=== PATIENT | female | born 1955 | race Caucasian/White ===

== ENCOUNTER 2017-01-15 14:14 | Emergency (ER) | payer BC ==
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
[2017-01-15] MEDS ORDERED: TORAdol 30 mg Injection IM ONE (16:08)
[2017-01-15 16:10] VITALS: O2SAT 93
[2017-01-15] MEDS ORDERED: TORAdol 30 mg Injection ONE ×2 (16:13→16:17)
[2017-01-15 16:56] VITALS: BP 130/68; PULSE 84
--- NOTE | 2017-01-15 21:22 | XRAY ---
Indication: Pain following fall. Comparison: None 3 views of the left elbow demonstrates tiny olecranon process bone spur. No other bony, articular, or soft tissue abnormalities.
== END 2017-01-15 16:56 | disposition home or self-care (01) ==
LOC: ED 14:14
DX: S50.02XA Contusion of left elbow, initial encounter (principal); W01.0XXA Fall on same level from slipping, tripping and stumbling without subsequent striking against object, initial encounter; E11.9 Type 2 diabetes mellitus without complications; Z79.899 Other long term (current) drug therapy; J44.9 Chronic obstructive pulmonary disease, unspecified
CPT/HCPCS: 73080; 96372; 99283; 99284; J1885

== ENCOUNTER 2017-03-06 22:08 | Emergency (ER) | payer BC ==
[2017-03-06 22:19] VITALS: O2SAT 94
[2017-03-06] MEDS ORDERED: Zofran 4 MG/2 ML VIAL IV ONE (22:28)
[2017-03-06] MEDS ORDERED: BABY ASPIRIN 81 MG CHEW PO ONE (22:28)
[2017-03-06] MEDS ORDERED: Nitrostat 0.4 MG (ED) SL ONE ×2 (22:28→22:29)
[2017-03-06] MEDS ORDERED: Sodium Chloride 0.9% 1000 ML 1,000 ML ONE (22:29)
[2017-03-06] MEDS ORDERED: BABY ASPIRIN 81 MG CHEW ONE (22:29)
[2017-03-06] MEDS ORDERED: Zofran 4 MG/2 ML VIAL ONE (22:31)
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
[2017-03-06 22:36] LABS: BASOPHIL % 0.3 % (0.0-0.4); Eosinophil % 1.8 % (0.00-5.0); Granulocytes % 57.3 % (36.0-66.0); Lymphocytes % 34.8 % (24.0-44.0); Mean Cell Volume 90.2 fl (78-100); Mean Corpuscular Hemoglobin 28.2 pg (26-32); Mean Platelet Volume 9.5 fl (6-9.5); Monocytes % 5.8 % (0.0-12.0); Platelet Count 347 K/mm3 (150-450); Red Blood Count 4.58 M/mm3 (4.1-5.4); Red Cell Distribution Width 13.8 % (11.5-14.0)
[2017-03-06 22:39] LABS: INR 1.05 (0.8-3.0); PROTIME 11.7 SECONDS (9.95-12.35)
[2017-03-06] MEDS ORDERED: Ntg 0.2MG/Ml in D5W GLASS*** 250 ML IV PRN (22:41)
[2017-03-06 22:42] LABS: PTT 32.5 SECONDS (25.3-37.0)
[2017-03-06] MEDS ORDERED: Ntg 0.2MG/Ml in D5W GLASS*** 250 ML IV ONE (22:45)
[2017-03-06] MEDS ORDERED: Sodium Chloride 0.9% 1000 ML 1,000 ML IV SCH (22:45)
[2017-03-06 22:53] VITALS: BP 128/61; PULSE 105
[2017-03-06 22:54] LABS: ALBUMIN 3.6 g/dL (3.4-5.0); ALKALINE PHOSPHATASE 145 U/L (46-116); ANION GAP 14.7 MEQ/L (5-15); BLOOD UREA NITROGEN 23 mg/dL (9-20); CHLORIDE 105 mEq/L (98-107); Carbon Dioxide 26.9 mEq/L (21-32); Glucose 309 MG/DL (70-110); Potassium 3.8 mEq/L (3.5-5.1); SGOT/AST 17 U/L (15-37); SGPT/ALT 28 U/L (12-78); SODIUM 143 mEq/L (136-145); Total Protein 7.4 gm/dL (6.4-8.2)
[2017-03-06] MEDS ORDERED: Heparin 5000 UNITS/0.5 ML (HIGH RISK MED) ONE (22:54)
[2017-03-06] MEDS ORDERED: Heparin 25,000 units/D5W 250ML PREMIX 25,000 UNITS/250 ML BAG IV ONE (22:54)
[2017-03-06] MEDS ORDERED: LOPRESSOR 5 MG/5 ML INJECTION IV ONE ×2 (22:55→22:57)
[2017-03-06] MEDS ORDERED: Heparin 5000 UNITS/0.5 ML (HIGH RISK MED) IV ONE (22:56)
[2017-03-06] MEDS ORDERED: Heparin 25,000 units/D5W 250ML PREMIX 25,000 UNITS/250 ML BAG IV SCH (23:00)
--- NOTE | 2017-03-07 08:48 | XRAY ---
Indication: Chest pain. Comparison: December 26, 2014. Portable chest less inflated today again without focal infiltrate, consolidation, or large effusion. Heart is not enlarged for AP portable technique. Stable right base and hilar/mediastinal calcified granulomas. Bony thorax intact again with mild degenerative changes and right shoulder surgery. Impression: Stable nonacute chest with chronic features.
== END 2017-03-06 23:30 | disposition short-term general hospital (02) ==
LOC: ED 22:08
DX: I24.9 Acute ischemic heart disease, unspecified (principal); R07.89 Other chest pain; R11.0 Nausea; E11.9 Type 2 diabetes mellitus without complications; Z79.84 Long term (current) use of oral hypoglycemic drugs; Z79.899 Other long term (current) drug therapy
CPT/HCPCS: 36000; 36415; 71010; 80053; 83880; 84484; 85025; 85610; 85730; 93005; 93041; 96360; 96361; 96365; 96374; 96375; 99285; J1644; J2405; A9270-GY

== ENCOUNTER 2017-06-21 12:54 | Observation (INO) | payer BC ==
[2017-06-21] MEDS ORDERED: Sodium Chloride 0.9% 500 ML 500 ML IV ONE ×2 (13:49→14:08)
--- NOTE | 2017-06-21 14:07 | XRAY ---
Indication: Dizziness. Comparison: March 06, 2017. Portable chest remains clear. Heart is not enlarged for AP portable technique. New left-sided AICD without complications. Stable mediastinal/hilar calcified nodes. Bony thorax intact. Impression: Nonacute chest with chronic features.
[2017-06-21] MEDS ORDERED: Zofran 4 MG/2 ML VIAL ONE (14:10)
[2017-06-21 14:16] LABS: Hematocrit 42.8 % (35-47); Hemoglobin 13.5 gm/dl (12.0-16.0); Mean Cell Volume 87.2 fl (78-100); Mean Corpuscular Hemoglobin 27.5 pg (26-32); Mean Corpuscular Hgb Concent. 31.5 g/dl (32-36); Mean Platelet Volume 9.7 fl (6-9.5); Platelet Count 225 K/mm3 (150-450); Red Blood Count 4.91 M/mm3 (4.1-5.4); Red Cell Distribution Width 14.2 % (11.5-14.0); White Blood Count 10.1 K/mm3 (4.0-10.5)
[2017-06-21] MEDS: Zofran 4 MG/2 ML VIAL IV ONE (14:17)
[2017-06-21 14:40] LABS: ALBUMIN 4.3 g/dL (3.5-5.0); ALKALINE PHOSPHATASE 143 U/L (38-126); ANION GAP 16.6 MEQ/L (5-15); BLOOD UREA NITROGEN 16 mg/dL (7-17); CHLORIDE 103 mmol/L (98-107); Calcium 9.5 mg/dL (8.4-10.2); Carbon Dioxide 28 mmol/L (22-30); Creatinine 1 0.72 mg/dL (0.52-1.04); Glucose 289 mg/dL (74-106); Potassium 4.1 mmol/L (3.5-5.1); SGOT/AST 19 U/L (14-36); SGPT/ALT 17 U/L (0-35); SODIUM 144 mmol/L (137-145); Total Protein 7.3 g/dL (6.3-8.2)
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
[2017-06-21 14:48] LABS: NT PRO BNP 1870 pg/mL (0-900)
[2017-06-21 18:20] LABS: Appearance CLEAR (CLEAR); Bilirubin NEGATIVE (NEGATIVE); Blood NEGATIVE Ery/ul (0-5); Glucose 250 mg/dL (NEGATIVE); Ketones NEGATIVE (NEGATIVE); Leukocyte Esterase NEGATIVE (NEGATIVE); Nitrite NEGATIVE (NEGATIVE); Protein,Urine Dip NEGATIVE (Negative); Specific Gravity 1.025 (1.005-1.025); Urobilinogen NORMAL mg/dL (0-1)
[2017-06-21 18:21] LABS: Bacteria FEW /HPF (NEGATIVE); Epithelial Cells MODERATE /HPF (FEW); Hyaline Casts 0-2 /LPF (0-2); Mucus MODERATE /HPF (NEGATIVE)
[2017-06-21] MEDS ORDERED: Zofran 4 MG/2 ML VIAL IV PRN (20:23)
[2017-06-21] MEDS ORDERED: Sodium Chloride 0.9% 1000 ML 1,000 ML IV SCH (20:23)
[2017-06-21] MEDS ORDERED: TYLENOL 325 MG PO PRN (20:23)
[2017-06-21] MEDS ORDERED: TYLENOL EXTRA STRENGTH 500 MG PO PRN (21:25)
[2017-06-21] MEDS ORDERED: ULTRAM 50 MG PO PRN (21:29)
[2017-06-21] MEDS ORDERED: Imdur 30 MG ONE (21:38)
[2017-06-21] MEDS: NEURONTIN 300 MG PO SCH (22:17)
[2017-06-21] MEDS: Glucophage 500 MG PO SCH (22:18)
[2017-06-22 05:44] LABS: BASOPHIL % 0.4 % (0.0-0.4); Basophil (Absolute #) 0.03 (0-0.4); Eosinophil % 2.3 % (0.00-5.0); Eosinophil (Absolute #) 0.19 (0-0.5); Granulocyte Absolute (ANC) 5.01 (1.4-6.9); Granulocytes % 59.7 % (36.0-66.0); Hematocrit 40.1 % (35-47); Hemoglobin 12.3 gm/dl (12.0-16.0); Lymphocyte (Absolute #) 2.71 (1.0-4.6); Lymphocytes % 32.3 % (24.0-44.0); Mean Cell Volume 88.7 fl (78-100); Mean Corpuscular Hemoglobin 27.2 pg (26-32); Mean Corpuscular Hgb Concent. 30.7 g/dl (32-36); Mean Platelet Volume 9.5 fl (6-9.5); Monocyte (Absolute #) 0.44 (0.0-1.3); Monocytes % 5.3 % (0.0-12.0); Platelet Count 206 K/mm3 (150-450); Red Blood Count 4.52 M/mm3 (4.1-5.4); Red Cell Distribution Width 14.2 % (11.5-14.0); White Blood Count 8.4 K/mm3 (4.0-10.5)
[2017-06-22 06:08] LABS: ALBUMIN 3.9 g/dL (3.5-5.0); ALKALINE PHOSPHATASE 113 U/L (38-126); ANION GAP 12.5 MEQ/L (5-15); BLOOD UREA NITROGEN 17 mg/dL (7-17); CHLORIDE 101 mmol/L (98-107); Calcium 9.4 mg/dL (8.4-10.2); Carbon Dioxide 31 mmol/L (22-30); Glucose 177 mg/dL (74-106); Potassium 3.8 mmol/L (3.5-5.1); SGOT/AST 12 U/L (14-36); SGPT/ALT 15 U/L (0-35); SODIUM 141 mmol/L (137-145); Total Protein 6.7 g/dL (6.3-8.2)
[2017-06-22] MEDS ORDERED: Sodium Chloride 0.9% 10 ML FLUSH Syringe IV PRN (06:31)
[2017-06-22] MEDS: Glucophage 500 MG PO SCH ×2 (07:29→17:35)
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
[2017-06-22] MEDS ORDERED: Imdur 30 MG PO SCH (10:00)
[2017-06-22] MEDS ORDERED: Zestril 5 MG PO SCH (10:00)
[2017-06-22] MEDS ORDERED: LASIX 20 MG PO SCH (10:00)
[2017-06-22] MEDS: Cymbalta 30 MG Capsule PO SCH (11:18)
[2017-06-22] MEDS: NEURONTIN 300 MG PO SCH ×2 (11:18→21:35)
[2017-06-22] MEDS: Glucotrol Xl 5 MG PO SCH (11:18)
[2017-06-22] MEDS: LIPITOR 40MG PO SCH (11:19)
[2017-06-22] MEDS: Sodium Chloride 0.9% 10 ML FLUSH Syringe IV SCH ×2 (17:35→21:37)
[2017-06-22] MEDS ORDERED: Coreg 3.125 MG PO SCH (22:00)
[2017-06-23] MEDS: Sodium Chloride 0.9% 10 ML FLUSH Syringe IV SCH (06:09)
[2017-06-23 06:41] VITALS: BP 156/81; O2SAT 94
[2017-06-23 06:59] VITALS: PULSE 70
[2017-06-23] MEDS: Glucophage 500 MG PO SCH (08:02)
[2017-06-23] MEDS: LIPITOR 40MG PO SCH (09:03)
[2017-06-23] MEDS: Glucotrol Xl 5 MG PO SCH (09:03)
[2017-06-23] MEDS: Cymbalta 30 MG Capsule PO SCH (09:03)
[2017-06-23] MEDS: NEURONTIN 300 MG PO SCH (09:03)
--- NOTE | 2017-06-23 09:58 | PCM.DCORD ---
- Discharge Discharge Date: 06/23/17 Disposition: Home, Self-Care Condition: Good Prescriptions: New Fluticasone/Salmeterol [Advair 250-50 Diskus] 1 each IH BID #1 disk.w.dev Carvedilol 3.125 mg [Coreg 3.125 MG] 3.125 mg PO HS tablet Glipizide Xl 5 mg [Glucotrol Xl 5 MG] 5 mg PO DAILY@0900 #30 tab Albuterol Sulfate [Proair Hfa] 2 inh IN Q4H PRN #1 [id number] PRN Reason: Shortness Of Breath Continue Metformin HCl [Metformin HCl ER] 500 mg PO BID Gabapentin [Neurontin] 600 mg PO BID Acetaminophen [Acetaminophen Extra Strength] 1,000 mg PO TID Duloxetine HCl 30 mg [Cymbalta 30 MG Capsule] 30 mg PO DAILY Atorvastatin Calcium [Lipitor] 40 mg PO DAILY Tramadol HCl 50 mg [Ultram 50 mg] 50 mg PO Q6HPRN PRN PRN Reason: Pain Discontinued Insulin Degludec [Tresiba Flextouch U-100] 16 unit SQ HS Glyburide 5 mg [Micronase 5 MG] 5 mg PO BID Furosemide [Furosemide] 20 mg PO DAILY Isosorbide Mononitrate 30 mg [Imdur 30 MG] 30 mg PO DAILY Carvedilol [Carvedilol] 3.125 mg PO BID Sacubitril/Valsartan [Entresto 49 mg-51 mg Tablet] 1 each PO BID Additional Instructions: Follow up with Dr. Park. Follow up with: AGNES IBARRA [Primary Care Provider] - 07/01/17 10:30 am
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
== END 2017-06-23 11:08 | disposition home or self-care (01) ==
LOC: ED 12:54 → MED SURG 20:05
PROVIDERS: ADMIT Internal Medicine; ATTEND Internal Medicine
DX: R55 Syncope and collapse (principal); E11.9 Type 2 diabetes mellitus without complications; I42.9 Cardiomyopathy, unspecified; Z79.899 Other long term (current) drug therapy
CPT/HCPCS: 36000; 36415; 71045; 80053; 81000; 82962; 83880; 84484; 85025; 85027; 93005; 93268; 94760; 96360; 96361; 96374; 99285; G0378; J2405; Q3014; A9270-GY

== ENCOUNTER 2017-10-04 20:01 | Emergency (ER) | payer BC ==
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
[2017-10-04] MEDS ORDERED: MOTRIN 400 MG PO ONE (21:26)
[2017-10-04] MEDS ORDERED: MOTRIN 400 MG ONE (21:51)
[2017-10-04 22:04] VITALS: BP 140/63; PULSE 94; O2SAT 95
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
== END 2017-10-04 22:01 | disposition home or self-care (01) ==
LOC: ED 20:01
DX: S80.02XA Contusion of left knee, initial encounter (principal); M25.562 Pain in left knee; V09.9XXA Pedestrian injured in unspecified transport accident, initial encounter; Y93.01 Activity, walking, marching and hiking; Y92.009 Unspecified place in unspecified non-institutional (private) residence as the place of occurrence of the external cause; Z79.899 Other long term (current) drug therapy
CPT/HCPCS: 73562; 73590; 99284; A9270-GY

== ENCOUNTER 2018-01-23 22:53 | Emergency (ER) | payer BC ==
[2018-01-23] MEDS ORDERED: Sodium Chloride 0.9% 1000 ML 1,000 ML ONE (23:02)
[2018-01-23] MEDS ORDERED: Sodium Chloride 0.9% 1000 ML 1,000 ML IV STA (23:11)
[2018-01-23] MEDS ORDERED: Nitrostat 0.4 MG (ED) SL ONE (23:11)
[2018-01-23] MEDS ORDERED: MORPHINE SULFATE 2 MG INJ IV ONE (23:11)
[2018-01-23] MEDS ORDERED: BABY ASPIRIN 81 MG CHEW PO ONE (23:11)
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
[2018-01-23] MEDS ORDERED: MORPHINE SULFATE 2 MG INJ ONE (23:14)
[2018-01-23] MEDS ORDERED: Zofran 4 MG/2 ML VIAL ONE (23:14)
[2018-01-23] MEDS ORDERED: Zofran 4 MG/2 ML VIAL IV ONE (23:14)
[2018-01-23 23:20] LABS: BASOPHIL % 0.3 % (0.0-0.4); Basophil (Absolute #) 0.04 (0-0.4); Eosinophil % 1.3 % (0.00-5.0); Eosinophil (Absolute #) 0.17 (0-0.5); Granulocyte Absolute (ANC) 7.83 (1.4-6.9); Granulocytes % 61.2 % (36.0-66.0); Hematocrit 47.1 % (35-47); Hemoglobin 15.5 gm/dl (12.0-16.0); Lymphocyte (Absolute #) 4.06 (1.0-4.6); Lymphocytes % 31.7 % (24.0-44.0); Mean Cell Volume 86.6 fl (78-100); Mean Corpuscular Hgb Concent. 32.9 g/dl (32-36); Mean Platelet Volume 9.5 fl (6-9.5); Monocyte (Absolute #) 0.71 (0.0-1.3); Monocytes % 5.5 % (0.0-12.0); Platelet Count 234 K/mm3 (150-450); Red Blood Count 5.44 M/mm3 (4.1-5.4); Red Cell Distribution Width 13.6 % (11.5-14.0); White Blood Count 12.8 K/mm3 (4.0-10.5)
[2018-01-23 23:24] LABS: Mean Corpuscular Hemoglobin 28.4 pg (26-32)
[2018-01-23 23:43] LABS: ALBUMIN 4.6 g/dL (3.5-5.0); ALKALINE PHOSPHATASE 124 U/L (38-126); ANION GAP 15.7 MEQ/L (5-15); BLOOD UREA NITROGEN 26 mg/dL (7-17); CHLORIDE 97 mmol/L (98-107); CK-Creatinine Phosphokinase 29 U/L (30-135); Calcium 9.8 mg/dL (8.4-10.2); Carbon Dioxide 31 mmol/L (22-30); Creatinine 1 0.69 mg/dL (0.52-1.04); Glucose 231 mg/dL (74-106); NT PRO BNP 1860 pg/mL (0-900); Potassium 4.9 mmol/L (3.5-5.1); SGOT/AST 38 U/L (14-36); SGPT/ALT 63 U/L (0-35); SODIUM 138 mmol/L (137-145); Total Protein 7.4 g/dL (6.3-8.2)
[2018-01-23 23:47] LABS: Lactic Acid 2.1 (0.4-2.0)
[2018-01-24] MEDS ORDERED: MORPHINE SULFATE 2 MG INJ IV ONE ×2 (00:01→01:06)
[2018-01-24] MEDS ORDERED: MORPHINE SULFATE 2 MG INJ ONE ×2 (00:03→01:10)
[2018-01-24 00:21] VITALS: O2SAT 96
[2018-01-24 01:20] VITALS: BP 139/83; PULSE 79
--- NOTE | 2018-01-24 09:11 | XRAY ---
Exam: AP portable chest film from 01/23/2018. Comparison: AP portable chest film from 06/21/2017. Indication: Chest pain. Findings: The film was obtained in a mildly lordotic projection. Inflation of the lungs is average. The transverse heart size appears within normal limits. Left-sided cardiac pacemaker/AICD is seen with [address], one lead tip in the projection of the right atrium, another lead tip in the projection of the right ventricle, and a third lead in the projection of the coronary sinus. This is unchanged. Calcifications are seen within each hilum, right greater than left, as well as to the right of midline in the subcarinal region consistent with old healed granulomatous disease. This is unchanged. No air space infiltrates, vascular congestion, pneumothorax, or pleural fluid is seen. There may be a calcified granuloma within the right posterior lung sulcus. This is confirmed on a CT of the chest from 02/29/2016. No acute osseous process is seen. There appears to be mild degenerative disc disease and degenerative joint disease at C5-C6. Slight convexity of the mid thoracic spine toward the right is seen. Impression: 1. No acute cardiopulmonary disease is seen, no change from 06/21/2017. 2. I again see evidence of old healed granulomatous disease, as well as a left-sided cardiac pacemaker/AICD.
== END 2018-01-24 02:04 | disposition short-term general hospital (02) ==
LOC: ED 22:53
DX: R07.9 Chest pain, unspecified (principal); Z79.899 Other long term (current) drug therapy; Z95.0 Presence of cardiac pacemaker; R06.02 Shortness of breath; R61 Generalized hyperhidrosis; E11.9 Type 2 diabetes mellitus without complications; Z79.4 Long term (current) use of insulin
CPT/HCPCS: 36000; 36415; 71045; 80053; 82550; 83605; 83735; 83880; 84484; 85025; 93005; 93041; 96360; 96374; 96375; 96376; 99285; J2270; J2405; A9270-GY

== ENCOUNTER 2018-02-20 11:09 | Emergency (ER) | payer BC ==
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
[2018-02-20 12:02] LABS: BASOPHIL % 0.4 % (0.0-0.4); Basophil (Absolute #) 0.03 (0-0.4); Eosinophil % 1.1 % (0.00-5.0); Eosinophil (Absolute #) 0.09 (0-0.5); Granulocytes % 65.5 % (36.0-66.0); Hematocrit 47.7 % (35-47); Hemoglobin 15.5 gm/dl (12.0-16.0); Lymphocytes % 28.1 % (24.0-44.0); Mean Corpuscular Hgb Concent. 32.5 g/dl (32-36); Mean Platelet Volume 9.4 fl (6-9.5); Monocyte (Absolute #) 0.42 (0.0-1.3); Monocytes % 4.9 % (0.0-12.0); Platelet Count 242 K/mm3 (150-450); Red Blood Count 5.48 M/mm3 (4.1-5.4); Red Cell Distribution Width 13.9 % (11.5-14.0); White Blood Count 8.5 K/mm3 (4.0-10.5)
[2018-02-20 12:08] LABS: Mean Corpuscular Hemoglobin 28.2 pg (26-32)
--- NOTE | 2018-02-20 12:11 | XRAY ---
Indication: Hemoptysis and back pain. Comparison: January 23, 2018. PA/lateral chest unchanged again hyperinflated and clear with incidental scattered calcified granulomas. Heart is not enlarged again with left sided AICD. No new/acute findings.
[2018-02-20 12:17] LABS: ALBUMIN 4.8 g/dL (3.5-5.0); ALKALINE PHOSPHATASE 164 U/L (38-126); ANION GAP 16.7 MEQ/L (5-15); BLOOD UREA NITROGEN 25 mg/dL (7-17); CHLORIDE 100 mmol/L (98-107); Calcium 9.9 mg/dL (8.4-10.2); Carbon Dioxide 26 mmol/L (22-30); Creatinine 1 0.64 mg/dL (0.52-1.04); Glucose 297 mg/dL (74-106); Potassium 4.3 mmol/L (3.5-5.1); SGOT/AST 31 U/L (14-36); SGPT/ALT 52 U/L (0-35); SODIUM 138 mmol/L (137-145)
[2018-02-20 12:45] LABS: INR 0.9 (0.8-3.0)
[2018-02-20 12:47] LABS: PTT 31.2 SECONDS (25.3-37.0)
[2018-02-20] MEDS ORDERED: DUONEB 0.5-3 MG/3 ml Neb IH ONE ×2 (12:56→13:05)
[2018-02-20 13:34] VITALS: BP 111/74; PULSE 78; O2SAT 97
== END 2018-02-20 13:35 | disposition home or self-care (01) ==
LOC: ED 11:09
DX: R04.2 Hemoptysis (principal); J44.9 Chronic obstructive pulmonary disease, unspecified; M54.6 Pain in thoracic spine; F17.200 Nicotine dependence, unspecified, uncomplicated; Z79.899 Other long term (current) drug therapy; E11.9 Type 2 diabetes mellitus without complications; Z79.4 Long term (current) use of insulin
CPT/HCPCS: 36000; 36415; 71046; 80053; 85025; 85379; 85610; 85730; 93005; 94150; 94640; 99284; A9270

== ENCOUNTER 2018-04-05 13:38 | Emergency (ER) | payer BC ==
[2018-04-05] MEDS ORDERED: Sodium Chloride 0.9% 1000 ML 1,000 ML IV SCH (14:00)
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
[2018-04-05 14:08] LABS: Lactic Acid 1.9 (0.4-2.0)
--- NOTE | 2018-04-05 14:08 | XRAY ---
Indication: Short of breath. Comparison: February 20, 2018. Portable chest unchanged again hyperinflated and clear with incidental scattered calcified granulomas and left-sided AICD. Heart is not enlarged. No new/acute findings.
[2018-04-05 14:10] LABS: BASOPHIL % 0.4 % (0.0-0.4); Basophil (Absolute #) 0.04 (0-0.4); Eosinophil % 1.5 % (0.00-5.0); Eosinophil (Absolute #) 0.14 (0-0.5); Granulocyte Absolute (ANC) 5.86 (1.4-6.9); Granulocytes % 63.8 % (36.0-66.0); Hematocrit 48.6 % (35-47); Hemoglobin 15.9 gm/dl (12.0-16.0); Lymphocytes % 29.3 % (24.0-44.0); Mean Cell Volume 87.6 fl (78-100); Mean Corpuscular Hemoglobin 28.6 pg (26-32); Mean Corpuscular Hgb Concent. 32.7 g/dl (32-36); Mean Platelet Volume 9.5 fl (6-9.5); Monocyte (Absolute #) 0.46 (0.0-1.3); Platelet Count 229 K/mm3 (150-450); Red Blood Count 5.55 M/mm3 (4.1-5.4); White Blood Count 9.2 K/mm3 (4.0-10.5)
[2018-04-05] MEDS ORDERED: TYLENOL EXTRA STRENGTH 500 MG PO STA (14:15)
[2018-04-05 14:42] LABS: ALBUMIN 4.6 g/dL (3.5-5.0); ALKALINE PHOSPHATASE 129 U/L (38-126); ANION GAP 15.8 MEQ/L (5-15); BLOOD UREA NITROGEN 22 mg/dL (7-17); CHLORIDE 101 mmol/L (98-107); Calcium 9.7 mg/dL (8.4-10.2); Carbon Dioxide 26 mmol/L (22-30); Creatinine 1 0.64 mg/dL (0.52-1.04); Glucose 257 mg/dL (74-106); NT PRO BNP 1000 pg/mL (0-900); Potassium 4.4 mmol/L (3.5-5.1); SGOT/AST 18 U/L (14-36); SGPT/ALT 20 U/L (0-35); SODIUM 138 mmol/L (137-145)
[2018-04-05] MEDS ORDERED: Sodium Chloride 0.9% 1000 ML 1,000 ML ONE ×2 (14:50→15:49)
[2018-04-05] MEDS ORDERED: TYLENOL EXTRA STRENGTH 500 MG ONE (14:50)
[2018-04-05 17:38] VITALS: BP 107/60
[2018-04-05 17:47] VITALS: O2SAT 94
[2018-04-05 17:49] VITALS: PULSE 89
== END 2018-04-05 17:56 | disposition home or self-care (01) ==
LOC: ED 13:38
DX: R00.2 Palpitations (principal); J44.9 Chronic obstructive pulmonary disease, unspecified; R42 Dizziness and giddiness; R07.9 Chest pain, unspecified; R11.0 Nausea; I10 Essential (primary) hypertension; R51 Headache; E11.9 Type 2 diabetes mellitus without complications; Z79.4 Long term (current) use of insulin; Z79.899 Other long term (current) drug therapy; I25.2 Old myocardial infarction
CPT/HCPCS: 36000; 36415; 71045; 80053; 83605; 83735; 83880; 84484; 85025; 85379; 85610; 93005; 93041; 96360; 96361; 96374; 99284; A9270-GY

== ENCOUNTER 2018-11-12 12:49 | Emergency (ER) | payer BC ==
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
[2018-11-12 15:17] VITALS: BP 133/75; PULSE 72
[2018-11-12 15:46] VITALS: O2SAT 95
--- NOTE | 2018-11-12 21:01 | XRAY ---
Indication: Left jaw pain following tooth extraction 2 weeks ago. Abscess. Multiple contiguous axial images obtained through the facial bones without contrast as ordered. Sagittal and coronal reformatted images obtained. Comparison: None A few bilateral dental amalgams produces beam artifact. There has been right upper premolar and left lower molar tooth extraction with minimal soft tissue swelling and air in the sockets. No acute fracture, suspicious bony lesions, or osseous destructive process. Orbits including roof, mejia, and floors intact. Right maxillary sinus dens is mild mucosal thickening. Remaining paranasal sinuses and nasal passages are clear. Minimal nasal septal deviation to the right. Visualized noncontrasted soft tissues including base of the brain unremarkable. Impression: 1. Bilateral teeth extraction with residual soft tissue swelling and air. 2. Right maxillary sinus disease. 3. Remaining CT facial bones without contrast exam is negative. Comment: Preliminary interpretation was made by [facility]. No discrepancy. CTDI 59.47
== END 2018-11-12 15:50 | disposition home or self-care (01) ==
LOC: ED 12:49
DX: K08.89 Other specified disorders of teeth and supporting structures (principal)
CPT/HCPCS: 70486; 99283

== ENCOUNTER 2019-01-03 14:23 | Emergency (ER) | payer BC ==
[2019-01-03] MEDS ORDERED: NEOSYNEPHRINE 0.5% NASAL SPRAY/DROPS NS ONE (14:46)
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
[2019-01-03] MEDS ORDERED: NEOSYNEPHRINE 0.5% NASAL SPRAY/DROPS ONE (14:47)
[2019-01-03] MEDS ORDERED: XYLOCAINE 2% Uro-Jet ONE (14:50)
[2019-01-03] MEDS ORDERED: XYLOCAINE 2% Uro-Jet TOP ONE (14:56)
[2019-01-03 15:21] VITALS: BP 133/75; PULSE 88; O2SAT 98
== END 2019-01-03 15:39 | disposition home or self-care (01) ==
LOC: ED 14:23
DX: R04.0 Epistaxis (principal)
CPT/HCPCS: 30901; 99283; A9270-GY

== ENCOUNTER 2019-01-03 16:03 | Emergency (ER) | payer BC ==
[2011-12-06 20:14] VITALS: BP 115/68
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
== END 2019-01-03 16:31 | disposition left against medical advice (07) ==
LOC: ED 16:03
DX: R04.0 Epistaxis (principal); I50.9 Heart failure, unspecified; J44.9 Chronic obstructive pulmonary disease, unspecified; E11.9 Type 2 diabetes mellitus without complications; Z79.899 Other long term (current) drug therapy; F32.9 Major depressive disorder, single episode, unspecified; M19.90 Unspecified osteoarthritis, unspecified site
CPT/HCPCS: 99283

== ENCOUNTER 2019-03-16 08:52 | Emergency (ER) | payer BC ==
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
[2019-03-16] MEDS ORDERED: Sodium Chloride 0.9% 500 ML 500 ML IV ONE ×2 (09:53→09:59)
[2019-03-16 10:13] LABS: Absolute Neutrophil Ct (ANC) 3.96 (1.4-6.9); BASOPHIL % 0.6 % (0.0-0.4); Basophil (Absolute #) 0.04 (0-0.4); Eosinophil % 1.9 % (0.00-5.0); Eosinophil (Absolute #) 0.13 (0-0.5); Hematocrit 45.2 % (35-47); Lymphocyte (Absolute #) 2.41 (1.0-4.6); Lymphocytes % 34.7 % (24.0-44.0); Mean Cell Volume 87.6 fl (78-100); Mean Corpuscular Hemoglobin 29.1 pg (26-32); Mean Corpuscular Hgb Concent. 33.2 g/dl (32-36); Mean Platelet Volume 10.1 fl (6-9.5); Monocytes % 5.8 % (0.0-12.0); Platelet Count 226 K/mm3 (150-450); Red Blood Count 5.16 M/mm3 (4.1-5.4); White Blood Count 6.9 K/mm3 (4.0-10.5)
[2019-03-16 10:17] LABS: INR 0.98 (0.8-3.0); PROTIME 11.1 SECONDS (9.95-12.35)
[2019-03-16 10:29] LABS: Appearance SLIGHTLY CLOUDY (CLEAR); Bacteria FEW /HPF (NEGATIVE); Bilirubin NEGATIVE (NEGATIVE); Blood NEGATIVE Ery/ul (0-5); Epithelial Cells FEW /HPF (FEW); Glucose >=500 mg/dL (NEGATIVE); Ketones TRACE (NEGATIVE); Leukocyte Esterase NEGATIVE (NEGATIVE); Mucus SLIGHT /HPF (NEGATIVE); Nitrite NEGATIVE (NEGATIVE); Protein,Urine Dip NEGATIVE (Negative); RBC 0-2 /HPF (0-2); Specific Gravity 1.031 (1.005-1.025); Urobilinogen NEGATIVE mg/dL (0-1); WBC 0-2 /HPF (0-5)
[2019-03-16 10:31] LABS: ALBUMIN 4.1 g/dL (3.5-5.0); ALKALINE PHOSPHATASE 132 U/L (38-126); ANION GAP 14.9 MEQ/L (5-15); BLOOD UREA NITROGEN 28 mg/dL (7-17); CHLORIDE 103 mmol/L (98-107); Calcium 9.5 mg/dL (8.4-10.2); Carbon Dioxide 24 mmol/L (22-30); Creatinine 1 0.75 mg/dL (0.52-1.04); Glucose 398 mg/dL (74-106); MAGNESIUM 2.1 mg/dL (1.6-2.3); NT PRO BNP 315 pg/mL (0-900); Potassium 4.3 mmol/L (3.5-5.1); SGOT/AST 30 U/L (14-36); SGPT/ALT 30 U/L (0-35); SODIUM 137 mmol/L (137-145); Total Protein 7.7 g/dL (6.3-8.2)
[2019-03-16] MEDS ORDERED: Sodium Chloride 0.9% 1000 ML 1,000 ML IV STA (11:05)
[2019-03-16] MEDS ORDERED: NovoLIN R IV ONE (11:07)
[2019-03-16] MEDS ORDERED: Sodium Chloride 0.9% 1000 ML 1,000 ML ONE (11:14)
[2019-03-16] MEDS ORDERED: NovoLIN R ONE (11:14)
[2019-03-16 12:15] LABS: INFLUENZA A NEGATIVE (NEGATIVE); INFLUENZA B NEGATIVE (NEGATIVE); RESPIRATORY SYNCTIAL VIRUS NEGATIVE (Negative)
[2019-03-16 14:09] VITALS: BP 118/67; PULSE 78; O2SAT 92
== END 2019-03-16 14:07 | disposition home or self-care (01) ==
LOC: ED 08:52
DX: R53.1 Weakness (principal); E11.65 Type 2 diabetes mellitus with hyperglycemia; E86.0 Dehydration; R05 Cough; R53.83 Other fatigue; Z79.899 Other long term (current) drug therapy; I50.9 Heart failure, unspecified; J44.9 Chronic obstructive pulmonary disease, unspecified
CPT/HCPCS: 36415; 80053; 81001; 83735; 83880; 84484; 85025; 85610; 86308; 87077; 87086; 87186; 87631; 93005; 93041; 96360; 96374; 99284; A9270-GY

== ENCOUNTER 2019-03-22 16:37 | Emergency (ER) | payer BC ==
[2019-03-22] MEDS ORDERED: TYLENOL EXTRA STRENGTH 500 MG PO STA (17:12)
[2019-03-22] MEDS ORDERED: MOTRIN 600 MG PO ONE (17:12)
[2019-03-22] MEDS ORDERED: MOTRIN 600 MG ONE (17:15)
[2019-03-22] MEDS ORDERED: TYLENOL EXTRA STRENGTH 500 MG ONE (17:15)
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
[2019-03-22 18:27] VITALS: BP 143/90; PULSE 72
[2019-03-22 18:31] VITALS: O2SAT 95
--- NOTE | 2019-03-23 08:41 | XRAY ---
Indication: Pain following injury. Comparison: None 3 views of the right elbow demonstrates tiny spurring olecranon process and lateral epicondyle. No other bony, articular, or soft tissue abnormalities.
== END 2019-03-22 18:46 | disposition home or self-care (01) ==
LOC: ED 16:37
DX: S50.01XA Contusion of right elbow, initial encounter (principal); M25.521 Pain in right elbow; W30.81XA Contact with agricultural transport vehicle in stationary use, initial encounter; Y93.89 Activity, other specified; Y92.79 Other farm location as the place of occurrence of the external cause
CPT/HCPCS: 73080; 99284; A9270-GY

== ENCOUNTER 2019-04-06 08:34 | Emergency (ER) | payer BC ==
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
[2019-04-06] MEDS ORDERED: IMOVAX RABIES VACCINE 2.5 UNITS IM ONE (09:16)
[2019-04-06] MEDS ORDERED: HYPERRAB S-D 1500 IU/10 ML VIAL IM ONE (09:16)
[2019-04-06 10:47] VITALS: BP 109/73; PULSE 80; O2SAT 98
== END 2019-04-06 10:47 | disposition home or self-care (01) ==
LOC: ED 08:34
DX: S71.152A Open bite, left thigh, initial encounter (principal); W64.XXXA Exposure to other animate mechanical forces, initial encounter
CPT/HCPCS: 90375; 90471; 90675; 96372; 99283

== ENCOUNTER 2019-08-28 19:55 | Emergency (ER) | payer BC ==
[2019-08-28 20:51] LABS: Absolute Neutrophil Ct (ANC) 4.51 (1.4-6.9); BASOPHIL % 0.4 % (0.0-0.4); Basophil (Absolute #) 0.03 (0-0.4); Eosinophil % 2.6 % (0.00-5.0); Eosinophil (Absolute #) 0.21 (0-0.5); Hematocrit 44.1 % (35-47); Hemoglobin 14.3 gm/dl (12.0-16.0); Lymphocyte (Absolute #) 2.88 (1.0-4.6); Lymphocytes % 35.4 % (24.0-44.0); Mean Cell Volume 89.1 fl (78-100); Mean Corpuscular Hemoglobin 28.9 pg (26-32); Mean Corpuscular Hgb Concent. 32.4 g/dl (32-36); Mean Platelet Volume 9.5 fl (7.5-11.0); Monocytes % 6.2 % (0.0-12.0); Neutrophil % 55.4 % (36.0-66.0); Platelet Count 261 K/mm3 (150-450); Red Blood Count 4.95 M/mm3 (4.1-5.4); Red Cell Distribution Width 14.2 % (11.5-14.0); White Blood Count 8.1 K/mm3 (4.0-10.5)
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
[2019-08-28 21:15] LABS: ALBUMIN 4.3 g/dL (3.5-5.0); ALKALINE PHOSPHATASE 121 U/L (38-126); ANION GAP 12.7 MEQ/L (5-15); BLOOD UREA NITROGEN 17 mg/dL (7-17); CHLORIDE 99 mmol/L (98-107); Calcium 9.8 mg/dL (8.4-10.2); Carbon Dioxide 31 mmol/L (22-30); Glucose 256 mg/dL (74-106); NT PRO BNP 828 pg/mL (0-900); Potassium 4.1 mmol/L (3.5-5.1); SGOT/AST 21 U/L (14-36); SGPT/ALT 27 U/L (0-35); SODIUM 139 mmol/L (137-145); Total Protein 7.5 g/dL (6.3-8.2)
[2019-08-29 00:02] VITALS: O2SAT 95
[2019-08-29 00:35] VITALS: BP 128/71; PULSE 78
--- NOTE | 2019-08-29 14:29 | XRAY ---
Exam: AP upright portable chest film from 08/28/2019. Comparison: AP upright portable chest film from 04/05/2018. Indication: Left shoulder pain, chest pain, and shortness of breath for one day. History of pacemaker/internal defibrillator. Findings: The lungs are adequately inflated. Multiple EKG lines are seen in place. The transverse heart size is normal. There is atherosclerotic calcification within the aortic knob and slight tortuosity of the descending thoracic aorta. Stable granulomatous calcifications are seen to the right of the subcarinal region and overlying the right hilum. There is also a tiny calcified granuloma within the right suprahilar projection and a larger calcified granuloma at the right lung base. Left-sided cardiac AICD is noted with a separate lead extending to the right atrium and the right ventricle, as well as a lead within the coronary sinus. There is a suggestion of a loop recorder with external monitoring device overlying the left lung base/left lateral chest wall. No air space infiltrates, vascular congestion, pneumothorax, or pleural fluid is seen. Minimal calcification is seen superolateral to the right humeral head which may reflect hydroxyapatite deposition disease, or chronic calcific tendinitis. The left shoulder joint appears essentially unremarkable. There appears be some mild narrowing of the left acromioclavicular joint. Impression: 1. No acute cardio pulmonary disease is seen. 2. Left-sided AICD is again noted in place. There is a suggestion of a loop recorder overlying the left lung base with adjacent monitoring device overlying the lower left lateral chest wall. 3. Old healed granulomatous disease on the right, as discussed above.
== END 2019-08-29 00:40 | disposition home or self-care (01) ==
LOC: ED 19:55
DX: R06.02 Shortness of breath (principal); R00.2 Palpitations; M54.9 Dorsalgia, unspecified; Z79.899 Other long term (current) drug therapy; J44.9 Chronic obstructive pulmonary disease, unspecified; E11.9 Type 2 diabetes mellitus without complications; F32.9 Major depressive disorder, single episode, unspecified; Z95.810 Presence of automatic (implantable) cardiac defibrillator; Z72.0 Tobacco use
CPT/HCPCS: 36000; 36415; 71045; 80053; 80162; 83880; 84484; 85025; 93005; 93041; 94760; 99284

== ENCOUNTER 2019-11-09 15:35 | Emergency (ER) | payer BC ==
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
[2019-11-09] MEDS ORDERED: Hydromorphone 1 mg/ml Ampule IV ONE ×2 (16:05→16:38)
[2019-11-09] MEDS ORDERED: Zofran 4 MG/2 ML VIAL IV ONE (16:05)
[2019-11-09] MEDS ORDERED: Hydromorphone 1 mg/ml Ampule ONE ×2 (16:10→16:41)
[2019-11-09] MEDS ORDERED: Zofran 4 MG/2 ML VIAL ONE (16:10)
--- NOTE | 2019-11-09 16:23 | XRAY ---
Indication: Pain following 10 foot fall. Comparison: None 3 view right shoulder demonstrates mid clavicle shaft fracture with bayonet apposition/alignment. Elsewhere osteopenia, mild AC degenerative arthropathy, 2 humeral head orthopedic tacks, right hilar calcified granulomas, and partially visualized pacer leads.
[2019-11-09 16:52] VITALS: BP 141/56; PULSE 86; O2SAT 90
== END 2019-11-09 17:02 | disposition home or self-care (01) ==
LOC: ED 15:35
DX: S42.001A Fracture of unspecified part of right clavicle, initial encounter for closed fracture (principal); W01.198A Fall on same level from slipping, tripping and stumbling with subsequent striking against other object, initial encounter; Y93.89 Activity, other specified; Y92.89 Other specified places as the place of occurrence of the external cause
CPT/HCPCS: 73030; 96374; 96375; 96376; 99284; J1170; J2405

== ENCOUNTER 2020-02-04 16:32 | Emergency (ER) | payer BC ==
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
[2020-02-04 17:10] LABS: Absolute Neutrophil Ct (ANC) 6.69 (1.4-6.9); BASOPHIL % 0.4 % (0.0-0.4); Basophil (Absolute #) 0.04 (0-0.4); Eosinophil % 1.8 % (0.00-5.0); Eosinophil (Absolute #) 0.18 (0-0.5); Hematocrit 43.8 % (35-47); Hemoglobin 14.1 gm/dl (12.0-16.0); Lymphocyte (Absolute #) 2.79 (1.0-4.6); Lymphocytes % 27.3 % (24.0-44.0); Mean Cell Volume 88.3 fl (78-100); Mean Corpuscular Hemoglobin 28.4 pg (26-32); Mean Corpuscular Hgb Concent. 32.2 g/dl (32-36); Mean Platelet Volume 9.4 fl (7.5-11.0); Monocyte (Absolute #) 0.51 (0.0-1.3); Neutrophil % 65.5 % (36.0-66.0); Platelet Count 240 K/mm3 (150-450); Red Blood Count 4.96 M/mm3 (4.1-5.4); Red Cell Distribution Width 13.9 % (11.5-14.0); White Blood Count 10.2 K/mm3 (4.0-10.5)
[2020-02-04] MEDS ORDERED: Zofran 4 MG/2 ML VIAL IV ONE (17:34)
[2020-02-04] MEDS ORDERED: MORPHINE SULFATE 4 MG INJ IV ONE (17:34)
[2020-02-04] MEDS ORDERED: Zofran 4 MG/2 ML VIAL ONE (17:45)
[2020-02-04] MEDS ORDERED: MORPHINE SULFATE 4 MG INJ ONE (17:46)
[2020-02-04 17:53] LABS: ALKALINE PHOSPHATASE 153 U/L (38-126); ANION GAP 10.9 MEQ/L (5-15); BLOOD UREA NITROGEN 16 mg/dL (7-17); CHLORIDE 100 mmol/L (98-107); Calcium 9.2 mg/dL (8.4-10.2); Carbon Dioxide 27 mmol/L (22-30); Creatinine 1 0.53 mg/dL (0.52-1.04); EST GLOMERULAR FILTRATION RATE > 60.0 ML/MIN; Glucose 412 mg/dL (74-106); NT PRO BNP 1110 pg/mL (0-900); Potassium 3.9 mmol/L (3.5-5.1); SGOT/AST 17 U/L (14-36); SGPT/ALT 18 U/L (0-35); SODIUM 134 mmol/L (137-145); Total Protein 7.2 g/dL (6.3-8.2)
[2020-02-04] MEDS ORDERED: HUMULIN R IV ONE (18:28)
[2020-02-04] MEDS ORDERED: HUMULIN R ONE (19:16)
[2020-02-04 19:28] VITALS: O2SAT 97
[2020-02-04] MEDS ORDERED: Lasix 40 MG/4 ML IV ONE (19:33)
[2020-02-04] MEDS ORDERED: Lasix 40 MG/4 ML ONE (19:43)
[2020-02-04 20:46] VITALS: BP 140/72; PULSE 79
--- NOTE | 2020-02-05 08:41 | XRAY ---
Indication: Left chest pain. Comparison: August 28, 2019. Portable chest remains clear again with incidental hilar/pulmonary calcified granulomas. Heart is not enlarged again with left AICD and cardiac monitoring device. Bony thorax intact with new healing right clavicle fracture. Impression: Nonacute chest with chronic features.
== END 2020-02-04 21:00 | disposition home or self-care (01) ==
LOC: ED 16:32
DX: R07.9 Chest pain, unspecified (principal); I50.9 Heart failure, unspecified; R73.9 Hyperglycemia, unspecified; I25.10 Atherosclerotic heart disease of native coronary artery without angina pectoris
CPT/HCPCS: 36000; 36415; 71045; 80053; 80162; 82962; 83880; 84484; 85025; 85379; 93005; 93041; 94760; 96374; 96375; 99284; J1815; J1940; J2270; J2405

== ENCOUNTER 2020-02-22 11:51 | Emergency (ER) | payer BC ==
[2020-02-22 12:06] VITALS: BP 157/101; PULSE 98; O2SAT 97
[2020-02-22] MEDS ORDERED: MORPHINE SULFATE 4 MG INJ ONE (12:29)
[2020-02-22] MEDS: MORPHINE SULFATE 4 MG INJ IM ONE ×2 (12:30→12:33)
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
== END 2020-02-22 12:35 | disposition left against medical advice (07) ==
LOC: ED 11:51
DX: M25.511 Pain in right shoulder (principal); M84.411D Pathological fracture, right shoulder, subsequent encounter for fracture with routine healing; M54.2 Cervicalgia; I10 Essential (primary) hypertension; E78.5 Hyperlipidemia, unspecified; I25.10 Atherosclerotic heart disease of native coronary artery without angina pectoris; I50.9 Heart failure, unspecified; J44.9 Chronic obstructive pulmonary disease, unspecified; Z79.899 Other long term (current) drug therapy
CPT/HCPCS: 99283; J2270

== ENCOUNTER 2020-03-18 03:39 | Emergency (ER) | payer BC ==
[2020-03-18 04:24] LABS: Absolute Neutrophil Ct (ANC) 6.46 (1.4-6.9); BASOPHIL % 0.3 % (0.0-0.4); Basophil (Absolute #) 0.03 (0-0.4); Eosinophil % 2.3 % (0.00-5.0); Eosinophil (Absolute #) 0.27 (0-0.5); Hematocrit 45.2 % (35-47); Hemoglobin 14.6 gm/dl (12.0-16.0); Lymphocyte (Absolute #) 4.18 (1.0-4.6); Lymphocytes % 36.2 % (24.0-44.0); Mean Cell Volume 87.4 fl (78-100); Mean Corpuscular Hemoglobin 28.2 pg (26-32); Mean Corpuscular Hgb Concent. 32.3 g/dl (32-36); Mean Platelet Volume 9.7 fl (7.5-11.0); Monocytes % 5.2 % (0.0-12.0); Platelet Count 292 K/mm3 (150-450); Red Blood Count 5.17 M/mm3 (4.1-5.4); Red Cell Distribution Width 13.6 % (11.5-14.0); White Blood Count 11.5 K/mm3 (4.0-10.5)
[2020-03-18 04:28] LABS: Appearance SLIGHTLY CLOUDY (CLEAR); Bilirubin NEGATIVE (NEGATIVE); Blood NEGATIVE Ery/ul (0-5); Epithelial Cells RARE /HPF (FEW); Glucose NEGATIVE (NEGATIVE); Hyaline Casts 0-2 /LPF (0-2); Ketones NEGATIVE (NEGATIVE); Leukocyte Esterase NEGATIVE (NEGATIVE); Mucus SLIGHT /HPF (NEGATIVE); Nitrite NEGATIVE (NEGATIVE); Protein,Urine Dip 30 (Negative); Specific Gravity 1.019 (1.005-1.025); Urobilinogen NEGATIVE mg/dL (0-1)
[2020-03-18 04:37] LABS: ALBUMIN 4.7 g/dL (3.5-5.0); ALKALINE PHOSPHATASE 149 U/L (38-126); ANION GAP 11.3 MEQ/L (5-15); BLOOD UREA NITROGEN 21 mg/dL (7-17); CHLORIDE 95 mmol/L (98-107); Calcium 9.9 mg/dL (8.4-10.2); Carbon Dioxide 33 mmol/L (22-30); Creatinine 1 0.87 mg/dL (0.52-1.04); EST GLOMERULAR FILTRATION RATE > 60.0 ML/MIN; Glucose 183 mg/dL (74-106); MAGNESIUM 2.2 mg/dL (1.6-2.3); Potassium 3.7 mmol/L (3.5-5.1); SGOT/AST 24 U/L (14-36); SGPT/ALT 27 U/L (0-35); SODIUM 136 mmol/L (137-145); Total Protein 8.6 g/dL (6.3-8.2)
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
[2020-03-18 04:52] LABS: NT PRO BNP 314 pg/mL (0-900)
[2020-03-18] MEDS ORDERED: BABY ASPIRIN 81 MG CHEW PO ONE (06:52)
[2020-03-18] MEDS ORDERED: BABY ASPIRIN 81 MG CHEW ONE (06:56)
--- NOTE | 2020-03-18 09:00 | XRAY ---
Indication: Chest pain. Comparison: February 04, 2020. Portable chest remains clear again with hilar/pulmonary calcified granulomas, left AICD, and cardiac monitoring device. Heart is not enlarged. Bony thorax intact again with healing right clavicle fracture and right humeral head orthopedic tack. No new/acute findings.
[2020-03-18 19:31] VITALS: BP 116/70; PULSE 77; O2SAT 94
== END 2020-03-18 19:50 | disposition short-term general hospital (02) ==
LOC: ED 03:39
DX: R07.9 Chest pain, unspecified (principal); R42 Dizziness and giddiness; I50.9 Heart failure, unspecified; E11.9 Type 2 diabetes mellitus without complications; Z79.4 Long term (current) use of insulin; Z79.899 Other long term (current) drug therapy; J44.9 Chronic obstructive pulmonary disease, unspecified; Z95.810 Presence of automatic (implantable) cardiac defibrillator; Z72.0 Tobacco use; I10 Essential (primary) hypertension
CPT/HCPCS: 36000; 36415; 71045; 80053; 80162; 81001; 83735; 83880; 84484; 85025; 85379; 93005; 93041; 94760; 99285; A9270-GY

== ENCOUNTER 2020-04-26 20:07 | Observation (INO) | payer BC ==
[2020-04-26] MEDS ORDERED: Sodium Chloride 0.9% 1000 ML 1,000 ML IV STA (20:22)
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
[2020-04-26] MEDS ORDERED: Sodium Chloride 0.9% 1000 ML 1,000 ML ONE (20:27)
[2020-04-26] MEDS ORDERED: HUMULIN R IV ONE ×2 (20:28→21:19)
[2020-04-26] MEDS ORDERED: HUMULIN R ONE ×2 (20:36→21:22)
[2020-04-26 20:49] LABS: BASOPHIL % 0.4 % (0.0-0.4); Basophil (Absolute #) 0.04 (0-0.4); Eosinophil % 2.1 % (0.00-5.0); Eosinophil (Absolute #) 0.21 (0-0.5); Hematocrit 39.7 % (35-47); Hemoglobin 13.3 gm/dl (12.0-16.0); Lymphocyte (Absolute #) 3.77 (1.0-4.6); Lymphocytes % 38.5 % (24.0-44.0); Mean Cell Volume 87.1 fl (78-100); Mean Corpuscular Hemoglobin 29.2 pg (26-32); Mean Corpuscular Hgb Concent. 33.5 g/dl (32-36); Mean Platelet Volume 9.8 fl (7.5-11.0); Monocyte (Absolute #) 0.66 (0.0-1.3); Monocytes % 6.7 % (0.0-12.0); Neutrophil % 52.3 % (36.0-66.0); Platelet Count 308 K/mm3 (150-450); Red Blood Count 4.56 M/mm3 (4.1-5.4); White Blood Count 9.8 K/mm3 (4.0-10.5)
[2020-04-26 20:53] LABS: Appearance CLEAR (CLEAR); Bilirubin NEGATIVE (NEGATIVE); Blood NEGATIVE Ery/ul (0-5); Glucose >=500 mg/dL (NEGATIVE); Ketones NEGATIVE (NEGATIVE); Leukocyte Esterase NEGATIVE (NEGATIVE); Nitrite NEGATIVE (NEGATIVE); Protein,Urine Dip NEGATIVE (Negative); Specific Gravity 1.024 (1.005-1.025); Urobilinogen NEGATIVE mg/dL (0-1)
[2020-04-26 21:03] LABS: ALBUMIN 4.2 g/dL (3.5-5.0); ALKALINE PHOSPHATASE 207 U/L (38-126); ANION GAP 12.3 MEQ/L (5-15); BLOOD UREA NITROGEN 21 mg/dL (7-17); CHLORIDE 97 mmol/L (98-107); Calcium 8.9 mg/dL (8.4-10.2); Carbon Dioxide 28 mmol/L (22-30); Creatinine 1 0.86 mg/dL (0.52-1.04); EST GLOMERULAR FILTRATION RATE > 60.0 ML/MIN; Potassium 4.6 mmol/L (3.5-5.1); SGOT/AST 20 U/L (14-36); SGPT/ALT 24 U/L (0-35); SODIUM 133 mmol/L (137-145); Total Protein 7.5 g/dL (6.3-8.2)
[2020-04-26 21:04] LABS: Glucose 510 mg/dL (74-106)
--- NOTE | 2020-04-26 21:21 | XRAY ---
Indication: Headache, dizziness, and head pressure. Multiple contiguous axial images obtained through the head without contrast. Comparison: February 29, 2016. Ventriculosulcal pattern appears symmetric. Stable remote lacunar infarct left basal ganglia. No acute intracranial hemorrhage, abnormal extra-axial fluid collection, or mass effect. Fourth ventricle is midline without hydrocephalus. [place]-white matter differentiation preserved. Bony calvarium intact. Visualized paranasal sinuses and mastoid air cells are clear. Impression: Remote lacunar infarct left basal ganglia. No new or acute intracranial abnormalities. Comment: Preliminary interpretation was made by [facility]. No critical discrepancy.
[2020-04-26 21:55] LABS: MAGNESIUM 2.1 mg/dL (1.6-2.3); T4 (Thyroxine) 6.39 ug/dL (5.53-10.96); TSH, 3RD Generation 2.14 mIU/L (0.47-4.68)
[2020-04-27] MEDS ORDERED: TYLENOL 325 MG PO PRN (00:37)
[2020-04-27] MEDS ORDERED: Zofran 4 MG/2 ML VIAL IV PRN (00:37)
[2020-04-27] MEDS ORDERED: HUMULIN R IV PRN (00:37)
[2020-04-27] MEDS ORDERED: Sodium Chloride 0.9% W/ 20 mEq KCl/LITER 1,000 ML IV SCH (00:37)
[2020-04-27] MEDS: HUMALOG SQ PRN ×3 (01:29→07:55)
[2020-04-27 04:39] VITALS: PULSE 76
[2020-04-27 06:28] LABS: BASOPHIL % 0.3 % (0.0-0.4); Basophil (Absolute #) 0.02 (0-0.4); Eosinophil % 2.9 % (0.00-5.0); Eosinophil (Absolute #) 0.22 (0-0.5); Hematocrit 35.8 % (35-47); Hemoglobin 11.3 gm/dl (12.0-16.0); Lymphocyte (Absolute #) 3.43 (1.0-4.6); Lymphocytes % 45.7 % (24.0-44.0); Mean Cell Volume 89.7 fl (78-100); Mean Corpuscular Hemoglobin 28.3 pg (26-32); Mean Corpuscular Hgb Concent. 31.6 g/dl (32-36); Mean Platelet Volume 9.7 fl (7.5-11.0); Monocyte (Absolute #) 0.53 (0.0-1.3); Monocytes % 7.1 % (0.0-12.0); Platelet Count 260 K/mm3 (150-450); Red Blood Count 3.99 M/mm3 (4.1-5.4); Red Cell Distribution Width 13.1 % (11.5-14.0); White Blood Count 7.5 K/mm3 (4.0-10.5)
[2020-04-27 06:46] LABS: ALBUMIN 3.4 g/dL (3.5-5.0); ALKALINE PHOSPHATASE 136 U/L (38-126); ANION GAP 8.2 MEQ/L (5-15); BLOOD UREA NITROGEN 15 mg/dL (7-17); CHLORIDE 107 mmol/L (98-107); Calcium 8.7 mg/dL (8.4-10.2); Carbon Dioxide 28 mmol/L (22-30); Creatinine 1 0.71 mg/dL (0.52-1.04); EST GLOMERULAR FILTRATION RATE > 60.0 ML/MIN; Glucose 233 mg/dL (74-106); Potassium 4.4 mmol/L (3.5-5.1); SGOT/AST 18 U/L (14-36); SGPT/ALT 20 U/L (0-35); SODIUM 139 mmol/L (137-145); Total Protein 6.4 g/dL (6.3-8.2)
[2020-04-27] MEDS ORDERED: Glucophage 500 MG PO SCH (08:00)
[2020-04-27 08:01] VITALS: BP 145/65; O2SAT 94
[2020-04-27] MEDS ORDERED: HUMALOG SQ SCH (10:00)
[2020-04-27] MEDS ORDERED: DEMADEX 20 MG PO SCH (10:00)
[2020-04-27] MEDS ORDERED: PATIENT OWN MEDICATION SQ SCH (10:00)
[2020-04-27] MEDS ORDERED: SEMAGLUTIDE SQ SCH (10:00)
[2020-04-27] MEDS ORDERED: Novolin N SQ SCH (10:00)
[2020-04-27] MEDS ORDERED: NON-FORMULARY ITEM (Duloxetine Hcl [Cymbalta] 60 MG) PO SCH (10:00)
[2020-04-27] MEDS ORDERED: ZOCOR 20MG PO SCH (10:00)
[2020-04-27] MEDS ORDERED: NON-FORMULARY ITEM (Sacubitril/Valsartan [Entresto 24 Mg-26 Mg Tablet] 1 EACH) PO SCH (10:00)
[2020-04-27] MEDS ORDERED: LIPITOR 40MG PO SCH (10:00)
[2020-04-27] MEDS ORDERED: Lanoxin 0.125MG TABLET PO SCH (10:00)
[2020-04-27] MEDS ORDERED: ENTRESTO 49 MG-51 MG TABLET PO SCH (10:00)
[2020-04-27] MEDS ORDERED: Cymbalta 30 MG Capsule PO SCH (10:00)
[2020-04-27] MEDS ORDERED: Aldactone 25 MG PO SCH (10:00)
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
== END 2020-04-27 11:00 | disposition home or self-care (01) ==
LOC: ED 20:07 → MED SURG 04-27 00:31
PROVIDERS: ADMIT Family Medicine; ATTEND Family Medicine
DX: E11.65 Type 2 diabetes mellitus with hyperglycemia (principal); Z79.899 Other long term (current) drug therapy; Z79.4 Long term (current) use of insulin; J44.9 Chronic obstructive pulmonary disease, unspecified; Z87.820 Personal history of traumatic brain injury; I10 Essential (primary) hypertension; Z86.79 Personal history of other diseases of the circulatory system; R51.9 Headache, unspecified
CPT/HCPCS: 36000; 36415; 70450; 80053; 81001; 82947; 83605; 83735; 83880; 84436; 84443; 84484; 85025; 85652; 93005; 93041; 93268; 94760; 94762; 96374; 96376; 99284; G0378; J1815; J1817; A9270-GY

== ENCOUNTER 2020-10-06 23:37 | Emergency (ER) | payer BC ==
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
[2020-10-07 00:39] VITALS: BP 95/71; PULSE 78; O2SAT 93
--- NOTE | 2020-10-07 08:58 | XRAY ---
Indication: Pain following fall. Comparison: None 2 view left clavicle demonstrates minimal AC degenerative arthropathy, tiny lateral humeral head heterotopic ossifications presumed sequela to old injury/inflammation, tiny left carotid calcification, and partially visualized left AICD. No other bony, articular, or soft tissue abnormalities.
--- NOTE | 2020-10-07 08:58 | XRAY ---
Indication: Pain following fall. Comparison: None 3 view left shoulder demonstrates minimal AC degenerative arthropathy, tiny left carotid calcification, and partially visualized left AICD. No other bony, articular, or soft tissue abnormalities.
--- NOTE | 2020-10-07 08:58 | XRAY ---
Indication: Pain following fall. Comparison: None 3 nonweightbearing views right foot demonstrates advanced 1st MTP degenerative arthropathy and small heel spurs. No other bony, articular, or soft tissue abnormalities.
== END 2020-10-07 01:00 | disposition home or self-care (01) ==
LOC: ED 23:37
DX: S93.601A Unspecified sprain of right foot, initial encounter (principal); M79.671 Pain in right foot; M25.512 Pain in left shoulder; W10.9XXA Fall (on) (from) unspecified stairs and steps, initial encounter; Y92.009 Unspecified place in unspecified non-institutional (private) residence as the place of occurrence of the external cause; Z79.899 Other long term (current) drug therapy; E11.9 Type 2 diabetes mellitus without complications
CPT/HCPCS: 73000; 73030; 73630; 99283

== ENCOUNTER 2022-10-08 15:44 | Emergency (ER) | payer MEDICARE, OTHER ==
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
[2022-10-08] MEDS: BABY ASPIRIN 81 MG CHEW PO ONE (16:02)
[2022-10-08 16:20] LABS: Absolute Neutrophil Ct (ANC) 4.08 x10^3/uL (1.4-6.9); BASOPHIL % 0.7 % (0.0-0.4); Basophil (Absolute #) 0.05 x10^3/uL (0-0.4); Eosinophil % 2.6 % (0.00-5.0); Eosinophil (Absolute #) 0.18 x10^3/uL (0-0.5); Hematocrit 42.4 % (35-47); Hemoglobin 13.6 g/dL (12.0-16.0); IMMATURE GRAN # 0.02 x10^3u/L (0.00-0.03); IMMATURE GRAN % 0.3 % (0.00-0.4); Lymphocyte (Absolute #) 2.19 x10^3/uL (1.0-4.6); Lymphocytes % 32.1 % (24.0-44.0); Mean Cell Volume 87.1 fL (78-100); Mean Corpuscular Hemoglobin 27.9 pg (26-32); Mean Corpuscular Hgb Concent. 32.1 g/dL (32-36); Mean Platelet Volume 9.4 fL (7.5-11.0); Monocytes % 4.4 % (0.0-12.0); Neutrophil % 59.9 % (36.0-66.0); Platelet Count 224 x10^3/uL (150-450); Red Blood Count 4.87 x10^6/uL (4.1-5.4); Red Cell Distribution Width 12.4 % (11.5-14.0); White Blood Count 6.8 x10^3/uL (4.0-10.5)
[2022-10-08 16:34] LABS: ALBUMIN 4.3 g/dL (3.5-5.0); ALKALINE PHOSPHATASE 114 U/L (38-126); BLOOD UREA NITROGEN 27 mg/dL (7-17); CHLORIDE 98 mmol/L (98-107); Calcium 9.2 mg/dL (8.4-10.2); Carbon Dioxide 29 mmol/L (22-30); Creatinine 1 0.98 mg/dL (0.52-1.04); EST GLOMERULAR FILTRATION RATE > 60.0 ML/MIN; Glucose 349 mg/dL (74-106); SGOT/AST 35 U/L (14-36); SGPT/ALT 41 U/L (0-35); SODIUM 136 mmol/L (137-145); Total Protein 8.1 g/dL (6.3-8.2)
[2022-10-08 16:36] LABS: Potassium 4.6 mmol/L (3.5-5.1)
[2022-10-08 16:37] LABS: ANION GAP 13.6 MEQ/L (5-15)
[2022-10-08 20:05] VITALS: BP 120/61; PULSE 68; O2SAT 94
--- NOTE | 2022-10-08 22:06 | XRAY ---
Indication: Chest pain. Comparison: August 02, 2020 Portable chest remains inflated and clear again with incidental right perihilar/right lung calcified granulomas. Heart not enlarged again with left AICD and cardiac monitoring device. Bony thorax intact again with osteopenia, old right clavicle fracture, and right shoulder surgery. Impression: Continued nonacute chest with chronic features.
== END 2022-10-08 20:04 | disposition home or self-care (01) ==
LOC: ED 15:44
DX: R07.9 Chest pain, unspecified (principal); E11.9 Type 2 diabetes mellitus without complications; I50.9 Heart failure, unspecified; Z79.84 Long term (current) use of oral hypoglycemic drugs; Z79.85 Long-term (current) use of injectable non-insulin antidiabetic drugs; Z79.4 Long term (current) use of insulin; Z79.899 Other long term (current) drug therapy; Z72.0 Tobacco use
CPT/HCPCS: 36000; 36415; 71045; 80053; 84484; 85025; 85379; 93005; 94760; 99284; A9270-GY

== ENCOUNTER 2023-04-13 03:32 | Emergency (ER) | payer MEDICARE, OTHER ==
[2023-04-13 03:53] VITALS: PULSE 92; RESP 16; TEMP 98.2; O2SAT 94
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
[2023-04-13] MEDS ORDERED: TORAdol 30 mg Injection IM ONE (04:21)
[2023-04-13] MEDS ORDERED: TORAdol 30 mg Injection ONE (04:24)
[2023-04-13 04:50] VITALS: BP 155/71
--- NOTE | 2023-04-13 08:53 | XRAY ---
Indication: Pain following fall. Comparison: None 3 view right shoulder demonstrates osteopenia, old clavicle fracture with intact fixation plate/screws, 2 humeral head orthopedic tacks, chunky right hemithorax calcified granulomas, and partially visualized cardiac pacer leads. No other bony, articular, or soft tissue abnormalities.
== END 2023-04-13 04:48 | disposition home or self-care (01) ==
LOC: ED 03:32
DX: M25.511 Pain in right shoulder (principal); W06.XXXA Fall from bed, initial encounter; Y93.84 Activity, sleeping; Y92.003 Bedroom of unspecified non-institutional (private) residence as the place of occurrence of the external cause; E11.9 Type 2 diabetes mellitus without complications; Z79.4 Long term (current) use of insulin; Z79.84 Long term (current) use of oral hypoglycemic drugs; Z79.85 Long-term (current) use of injectable non-insulin antidiabetic drugs; Z79.899 Other long term (current) drug therapy; Z72.0 Tobacco use
CPT/HCPCS: 73030; 96372; 99283; J1885

== ENCOUNTER 2023-05-07 11:30 | Observation (INO) | payer MEDICARE, OTHER ==
[2023-05-07] MEDS ORDERED: Zofran 4 MG/2 ML VIAL IV ONE ×2 (11:55→13:30)
[2023-05-07] MEDS ORDERED: Sodium Chloride 0.9% 1000 ML 1,000 ML IV STA (11:55)
[2023-05-07] MEDS ORDERED: PROTONIX 40 MG IV IV ONE ×2 (11:55→12:08)
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
[2023-05-07] MEDS ORDERED: Zofran 4 MG/2 ML VIAL ONE ×2 (12:08→13:32)
[2023-05-07] MEDS ORDERED: Sodium Chloride 0.9% 1000 ML 1,000 ML ONE (12:09)
[2023-05-07 12:10] LABS: Absolute Neutrophil Ct (ANC) 12.96 x10^3/uL (1.4-6.9); BASOPHIL % 0.4 % (0.0-0.4); Basophil (Absolute #) 0.07 x10^3/uL (0-0.4); Eosinophil % 0.1 % (0.00-5.0); Eosinophil (Absolute #) 0.02 x10^3/uL (0-0.5); Hematocrit 52.4 % (35-47); Hemoglobin 17.5 g/dL (12.0-16.0); IMMATURE GRAN # 0.08 x10^3u/L (0.00-0.03); IMMATURE GRAN % 0.5 % (0.00-0.4); Lymphocyte (Absolute #) 3.45 x10^3/uL (1.0-4.6); Lymphocytes % 19.8 % (24.0-44.0); Mean Cell Volume 84.8 fL (78-100); Mean Corpuscular Hemoglobin 28.3 pg (26-32); Mean Corpuscular Hgb Concent. 33.4 g/dL (32-36); Mean Platelet Volume 9.7 fL (7.5-11.0); Monocyte (Absolute #) 0.82 x10^3/uL (0.0-1.3); Monocytes % 4.7 % (0.0-12.0); Neutrophil % 74.5 % (36.0-66.0); Platelet Count 334 x10^3/uL (150-450); Red Blood Count 6.18 x10^6/uL (4.1-5.4); Red Cell Distribution Width 12.7 % (11.5-14.0); White Blood Count 17.4 x10^3/uL (4.0-10.5)
[2023-05-07 12:24] LABS: ALBUMIN 5.3 g/dL (3.5-5.0); ANION GAP 25.8 MEQ/L (5-15); Calcium 10.3 mg/dL (8.4-10.2); Creatinine 1 2.23 mg/dL (0.52-1.04); EST GLOMERULAR FILTRATION RATE 23.7 ML/MIN; Potassium 3.9 mmol/L (3.5-5.1); Total Protein 9.8 g/dL (6.3-8.2)
[2023-05-07] MEDS ORDERED: Lactated Ringers 1,000 ML IV ONE ×2 (12:39→13:05)
[2023-05-07] MEDS ORDERED: Merrem 1 GM in Sodium Chloride 100ML MINI-BAG PLUS 100 ML IV ONE (13:10)
[2023-05-07] MEDS ORDERED: Merrem IV ONE (13:32)
[2023-05-07] MEDS ORDERED: Sodium Chloride 100ML MINI-BAG PLUS 100 ML IV ONE ×2 (13:32→18:33)
[2023-05-07 14:01] LABS: INFLUENZA A NEGATIVE (NEGATIVE); INFLUENZA B NEGATIVE (NEGATIVE); RESPIRATORY SYNCTIAL VIRUS NEGATIVE (NEGATIVE); SARS-CoV-2 Xpert Express NEGATIVE (NEGATIVE)
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
[2023-05-07] MEDS ORDERED: Compazine 10 MG/2 ML IM PRN (15:21)
[2023-05-07] MEDS ORDERED: Zofran 4 MG/2 ML VIAL IV PRN (15:36)
[2023-05-07] MEDS ORDERED: TYLENOL 325 MG PO PRN (15:36)
[2023-05-07] MEDS: Lactated Ringers 1,000 ML IV SCH (15:40)
[2023-05-07] MEDS ORDERED: PROTONIX 40 MG IV IV SCH (15:45)
[2023-05-07] MEDS ORDERED: Sodium Chloride 0.9% 1000 ML 1,000 ML IV SCH (15:45)
[2023-05-07 15:59] LABS: ALBUMIN 4.3 g/dL (3.5-5.0); ANION GAP 17.7 MEQ/L (5-15); BILIRUBIN,TOTAL 0.9 mg/dL (0.2-1.3); Calcium 8.7 mg/dL (8.4-10.2); Creatinine 1 1.75 mg/dL (0.52-1.04); EST GLOMERULAR FILTRATION RATE 31.8 ML/MIN; Potassium 3.8 mmol/L (3.5-5.1); Total Protein 7.8 g/dL (6.3-8.2)
[2023-05-07 16:55] LABS: Appearance Clear (Clear); Bacteria None Seen /HPF (None Seen); Bilirubin Negative (Negative); Blood Negative (Negative); Epithelial Cells None Seen /HPF (None Seen); Glucose, Urine Negative (Negative); Ketones 15 (Negative); Leukocyte Esterase Negative (Negative); Nitrite Negative (Negative); Protein,Urine Dip Trace (Negative); RBC 0-2 /HPF (0-5); Urobilinogen 0.2 mg/dL (0.2); WBC 0-2 /HPF (0-5)
[2023-05-07 17:04] LABS: Barbiturate,Urine NEGATIVE (NEGATIVE); Benzodiazepine,Urine NEGATIVE (NEGATIVE); Cocaine,Urine NEGATIVE (NEGATIVE); Methadone,Urine NEGATIVE (NEGATIVE); Opiate,Urine NEGATIVE (NEGATIVE); PCP,Urine NEGATIVE (NEGATIVE); THC,Urine NEGATIVE (NEGATIVE)
[2023-05-07 17:07] LABS: Amphetamine,Urine NEGATIVE (NEGATIVE)
[2023-05-07 17:10] LABS: Waxy Casts,Urine 0-2 /LPF (None Seen)
[2023-05-07 17:11] LABS: ADD URINE CULTURE? NO (NO)
--- NOTE | 2023-05-07 17:44 | XRAY ---
CLINICAL HISTORY: nausea/vomiting/ leukocytosis TECHNIQUE: A CT scan of the abdomen and pelvis was performed without oral and IV contrast. Coronal and sagittal reconstructive images were also obtained. CTDI: 3.60 mGy, DLP: 173.48 mGy-cm. COMPARISON: None. FINDINGS: A scan through the lower chest reveals a right lower lung lobe calcified granuloma measuring about 7 x 5 mm. The heart shows metallic pacemaker electrodes. Abdomen: The liver is of average size and measures 14.2 cm. No focal or diffuse parenchymal abnormality. The portal vein, intrahepatic biliary radicals and the bile ducts are normal. The spleen, pancreas, adrenal glands are unremarkable. The kidneys are unremarkable. These are normal in size and shape. No calculi or hydronephrosis. The gallbladder is distended, measuring about 10 cm long with small hyperdense content suspecting sludge with possible tiny stones. There is no evidence of wall thickening/ pericholecystic collection. The ascending colon, the transverse colon, the descending colon, and the visualized small bowel loops are unremarkable. There is no evidence of significant enlargement of the mesenteric or retroperitoneal lymph nodes. Mild diffuse aortic and iliac intimal vascular atherosclerotic calcifications are seen. Pelvis: The urinary bladder is unremarkable. The uterus is surgically removed. No adnexal lesions could be seen. The pelvic vasculature is unremarkable. No evidence of pelvic lymphadenopathy. Healed fractures of the pubic rami is seen and possibly the left sacral ala. IMPRESSION: 1. Distended gall bladder with sludge content and suggestion of tiny stones, for ultrasound assessment. 2. Healed fractures of the pubic rami and possibly of the left sacral ala. 3. Right lower lung lobe calcified granuloma. Electronically Signed by: Suzanna Gautam MD. (05/07/2023 17:40:07 EST)
[2023-05-07] MEDS ORDERED: PIPERACILLIN/TAZOBACTAM IV ONE (18:32)
[2023-05-07] MEDS: PIPERACILLIN/TAZOBACTAM 3.375 GM in Sodium Chloride 100ML MINI-BAG PLUS 100 ML IV SCH (18:45)
[2023-05-07] MEDS ORDERED: DUONEB 0.5-3 MG/3 ml Neb IH SCH (19:00)
--- NOTE | 2023-05-07 20:18 | XRAY ---
Indication: Vomiting. Comparison: October 08, 2022 PA/lateral chest unchanged again hyperinflated and clear with incidental right perihilar/right lung calcified granulomas. Heart not enlarged again with left AICD and cardiac monitoring device. Bony thorax intact again with osteopenia, old right clavicle fracture, and right shoulder surgery. Impression: Continued nonacute hyperinflated chest with chronic features.
[2023-05-07] MEDS ORDERED: SODIUM BICARBONATE PO SCH (22:00)
[2023-05-07] MEDS ORDERED: NON-FORMULARY ITEM (Atorvastatin Calcium [Lipitor] 80 MG Tablet) PO SCH (22:00)
[2023-05-07] MEDS ORDERED: NON-FORMULARY ITEM (Icosapent Ethyl [Vascepa] 1 GM Capsule) PO SCH (22:00)
[2023-05-07] MEDS ORDERED: NON-FORMULARY ITEM (Sacubitril/Valsartan [Entresto 24 Mg-26 Mg Tablet] 1 EACH Tablet) PO SCH (22:00)
[2023-05-07] MEDS: ZOCOR 20MG PO SCH (22:22)
[2023-05-07] MEDS: COREG 12.5 MG PO SCH (22:22)
[2023-05-07] MEDS: Ambien 10 MG PO SCH (22:23)
[2023-05-07] MEDS: ENTRESTO 49 MG-51 MG TABLET PO SCH (22:23)
[2023-05-07] MEDS: HUMALOG SQ PRN (22:38)
[2023-05-08] MEDS ORDERED: PIPERACILLIN/TAZOBACTAM IV ONE ×2 (00:09→05:48)
[2023-05-08] MEDS ORDERED: Sodium Chloride 100ML MINI-BAG PLUS 100 ML IV ONE ×2 (00:10→05:48)
[2023-05-08] MEDS: PIPERACILLIN/TAZOBACTAM 3.375 GM in Sodium Chloride 100ML MINI-BAG PLUS 100 ML IV SCH ×2 (00:19→05:57)
--- NOTE | 2023-05-08 05:08 | PCM.NOTE ---
Date and Time: 05/08/23 0507 Subjective Assessment: Ms. Burgos is a 68 year old female with a pmhx of CHF, COPD, HTN, DMII, heart virus, torn vena cava, (pacemaker/def),TBI, and chronic pain who presented to ED 05/07/23 with complaints of nausea and vomiting for 3-4 days.In ED, patient afebrile, tachycardic, normotensive, with spo2 @ 97% on RA. CXR with no acute findings. CT abd/pelvis demonstrates a distended gallbladder with sludge content and suggestion of tiny stones. EKG NS with no acute ischemic changes, ST elevations/deviations. Lab findings remarkable for leukocytosis with wbc at 17.4, erythrocytosis with hgb at 17.5/HCT 524, acidosis with co2 at 18, WILIAN with BUN at 76, Creat at 2.23, lactic acid at 2.2, transaminitis with AST at 49, ALT at 63, ALK phos at 157, serum protein at 9.8, and albumin at 5.3. Patient given 2L fluid bolus, protonix, Merrem, and zofran. Patient being admitted for sepsis of unknown etiology, N/V, WILIAN secondary to hypovolemia. Current treatment with Zosyn and IVF. 05/08: No overnight events noted. Labs with noted improvement. Acidosis has resolved. WILIAN improving. Endorsing nausea with no vomiting. Discussed Ct showing distended gallbladder with sludge/stones. Plan for US Abd tomorrow, surgery to eval for possible surgical intervention. Denies fever,cough, sob, cp, abdominal pain, TORIBIO, dizziness, V/D. - Review of Systems Constitutional: Fatigue Eyes: No Symptoms Ears, Nose, & Throat: No Symptoms Respiratory: No Symptoms Cardiac: No Symptoms Abdominal/Gastrointestinal: Nausea Genitourinary Symptoms: No Symptoms Musculoskeletal: No Symptoms Skin: No Symptoms Neurological: No Symptoms Psychological: No Symptoms Endocrine: No Symptoms Hematologic/Lymphatic: No Symptoms Immunological/Allergic: No Symptoms Objective Exam General Appearance: no apparent distress Neurologic Exam: alert, oriented x 3, cooperative Skin Exam: normal color Eye Exam: PERRL Ears, Nose, Throat Exam: normal ENT inspection Neck Exam: normal inspection Respiratory Exam: normal breath sounds, lungs clear Cardiovascular Exam: regular rate/rhythm, normal heart sounds Gastrointestinal/Abdomen Exam: soft, normal bowel sounds Extremity Exam: normal inspection Back Exam: normal inspection Pelvic Exam: deferred Rectal Exam: deferred OBJECTIVE DATA Vital Signs: Vital Signs - 24 hr Temp Pulse Resp BP BP Pulse Ox 05/08/23 04:00 97.3 F 75 18 109/52 90 L 05/07/23 23:47 97.1 F 89 20 110/55 92 L 05/07/23 20:00 97.8 F 98 H 18 131/59 93 L 05/07/23 16:52 96.8 F 85 17 133/63 96 05/07/23 16:16 97 H 16 96 05/07/23 14:35 96.8 F 85 17 133/63 96 05/07/23 14:10 81 15 134/67 95 05/07/23 14:00 86 16 94 L 05/07/23 13:50 76 17 94 L 05/07/23 13:40 81 13 97 05/07/23 13:31 87 13 90 L 05/07/23 13:19 97 05/07/23 13:01 81 10 L 129/76 96 05/07/23 12:30 84 11 L 150/76 97 05/07/23 12:00 96 H 22 143/87 94 L 05/07/23 11:45 97.2 F 112 H 15 114/72 97 05/07/23 11:41 112 H 18 114/72 97 Pain Assessment - Last Documented Pain Intensity 0 Intake and Output: Intake & Output 05/05/23 05/06/23 05/07/23 05/08/23 11:59 11:59 11:59 11:59 Intake Total 2807 Output Total 825 Balance 1982 Weight 58.2 kg 60.7 kg Lab Results: Lab Results-Last 24 Hours 05/07/23 05/07/23 05/07/23 Range/Units 12:05 12:06 12:06 WBC 17.4 H (4.0-10.5) x10^3/uL RBC 6.18 H (4.1-5.4) x10^6/uL Hgb 17.5 H (12.0-16.0) g/dL Hct 52.4 H (35-47) % MCV 84.8 (78-100) fL MCH 28.3 (26-32) pg MCHC 33.4 (32-36) g/dL RDW 12.7 (11.5-14.0) % Plt Count 334 (150-450) x10^3/uL MPV 9.7 (7.5-11.0) fL Gran % 74.5 H (36.0-66.0) % Immature Gran % (Auto) 0.5 H (0.00-0.4) % Nucleat RBC Rel Count 0.0 (0.00-0.1) % Eos # (Auto) 0.02 (0-0.5) x10^3/uL Immature Gran # (Auto) 0.08 H (0.00-0.03) x10^3u/L Absolute Lymphs (auto) 3.45 (1.0-4.6) x10^3/uL Absolute Monos (auto) 0.82 (0.0-1.3) x10^3/uL Absolute Nucleated RBC 0.00 (0.00-0.01) x10^3u/L Lymphocytes % 19.8 L (24.0-44.0) % Monocytes % 4.7 (0.0-12.0) % Eosinophils % 0.1 (0.00-5.0) % Basophils % 0.4 (0.0-0.4) % Absolute Granulocytes 12.96 H (1.4-6.9) x10^3/uL Basophils # 0.07 (0-0.4) x10^3/uL Sodium 137 (137-145) mmol/L Potassium 3.9 (3.5-5.1) mmol/L Chloride 97 L (98-107) mmol/L Carbon Dioxide 18 L (22-30) mmol/L Anion Gap 25.8 H (5-15) MEQ/L BUN 76 H (7-17) mg/dL Creatinine 2.23 H (0.52-1.04) mg/dL Estimated GFR 23.7 ML/MIN Glucose 86 (74-106) mg/dL POC Glucometer 94 (74 to 106) mg/dL Lactic Acid (0.4-2.0) Calcium 10.3 H (8.4-10.2) mg/dL Total Bilirubin 1.00 (0.2-1.3) mg/dL AST 49 H (14-36) U/L ALT 63 H (0-35) U/L Alkaline Phosphatase 157 H (38-126) U/L Troponin I (0.000-0.034) ng/mL NT-Pro-B Natriuret Pep (<300) pg/mL Serum Total Protein 9.8 H (6.3-8.2) g/dL Albumin 5.3 H (3.5-5.0) g/dL Amylase 54 (30-110) U/L Lipase 37 (23-300) U/L Procalcitonin (0.030-0.080) ng/mL Urine Color (Yellow) Urine Appearance (Clear) Urine pH (4.6-8.0) Ur Specific Louise (1.005-1.030) Urine Protein (Negative) Urine Glucose (UA) (Negative) mg/dL Urine Ketones (Negative) Urine Blood (Negative) Urine Nitrite (Negative) Urine Bilirubin (Negative) Urine Urobilinogen (0.2) mg/dL Ur Leukocyte Esterase (Negative) U Hyaline Cast (Auto) (0-2) /LPF Urine Microscopic RBC (0-5) /HPF Urine Microscopic WBC (0-5) /HPF Ur Epithelial Cells (None Seen) /HPF Urine Bacteria (None Seen) /HPF Waxy Casts (Auto) (None Seen) /LPF Urine Culture Reflexed (NO) Urine Opiates Level (NEGATIVE) Ur Methadone (NEGATIVE) Urine Barbiturates (NEGATIVE) Ur Phencyclidine (PCP) (NEGATIVE) Urine Amphetamine (NEGATIVE) U Benzodiazepine Level (NEGATIVE) Urine Cocaine (NEGATIVE) Urine Marijuana (THC) (NEGATIVE) Influenza Type A Ag (NEGATIVE) Influenza Type B Ag (NEGATIVE) RSV (PCR) (NEGATIVE) SARS-CoV-2 (PCR) (NEGATIVE) 05/07/23 05/07/23 05/07/23 Range/Units 12:09 12:09 12:10 WBC (4.0-10.5) x10^3/uL RBC (4.1-5.4) x10^6/uL Hgb (12.0-16.0) g/dL Hct (35-47) % MCV (78-100) fL MCH (26-32) pg MCHC (32-36) g/dL RDW (11.5-14.0) % Plt Count (150-450) x10^3/uL MPV (7.5-11.0) fL Gran % (36.0-66.0) % Immature Gran % (Auto) (0.00-0.4) % Nucleat RBC Rel Count (0.00-0.1) % Eos # (Auto) (0-0.5) x10^3/uL Immature Gran # (Auto) (0.00-0.03) x10^3u/L Absolute Lymphs (auto) (1.0-4.6) x10^3/uL Absolute Monos (auto) (0.0-1.3) x10^3/uL Absolute Nucleated RBC (0.00-0.01) x10^3u/L Lymphocytes % (24.0-44.0) % Monocytes % (0.0-12.0) % Eosinophils % (0.00-5.0) % Basophils % (0.0-0.4) % Absolute Granulocytes (1.4-6.9) x10^3/uL Basophils # (0-0.4) x10^3/uL Sodium (137-145) mmol/L Potassium (3.5-5.1) mmol/L Chloride (98-107) mmol/L Carbon Dioxide (22-30) mmol/L Anion Gap (5-15) MEQ/L BUN (7-17) mg/dL Creatinine (0.52-1.04) mg/dL Estimated GFR ML/MIN Glucose (74-106) mg/dL POC Glucometer (74 to 106) mg/dL Lactic Acid 2.2 H (0.4-2.0) Calcium (8.4-10.2) mg/dL Total Bilirubin (0.2-1.3) mg/dL AST (14-36) U/L ALT (0-35) U/L Alkaline Phosphatase (38-126) U/L Troponin I 0.038 H* (0.000-0.034) ng/mL NT-Pro-B Natriuret Pep (<300) pg/mL Serum Total Protein (6.3-8.2) g/dL Albumin (3.5-5.0) g/dL Amylase (30-110) U/L Lipase (23-300) U/L Procalcitonin 0.145 H (0.030-0.080) ng/mL Urine Color (Yellow) Urine Appearance (Clear) Urine pH (4.6-8.0) Ur Specific Louise (1.005-1.030) Urine Protein (Negative) Urine Glucose (UA) (Negative) mg/dL Urine Ketones (Negative) Urine Blood (Negative) Urine Nitrite (Negative) Urine Bilirubin (Negative) Urine Urobilinogen (0.2) mg/dL Ur Leukocyte Esterase (Negative) U Hyaline Cast (Auto) (0-2) /LPF Urine Microscopic RBC (0-5) /HPF Urine Microscopic WBC (0-5) /HPF Ur Epithelial Cells (None Seen) /HPF Urine Bacteria (None Seen) /HPF Waxy Casts (Auto) (None Seen) /LPF Urine Culture Reflexed (NO) Urine Opiates Level (NEGATIVE) Ur Methadone (NEGATIVE) Urine Barbiturates (NEGATIVE) Ur Phencyclidine (PCP) (NEGATIVE) Urine Amphetamine (NEGATIVE) U Benzodiazepine Level (NEGATIVE) Urine Cocaine (NEGATIVE) Urine Marijuana (THC) (NEGATIVE) Influenza Type A Ag (NEGATIVE) Influenza Type B Ag (NEGATIVE) RSV (PCR) (NEGATIVE) SARS-CoV-2 (PCR) (NEGATIVE) 05/07/23 05/07/23 05/07/23 Range/Units 13:21 14:12 15:35 WBC (4.0-10.5) x10^3/uL RBC (4.1-5.4) x10^6/uL Hgb (12.0-16.0) g/dL Hct (35-47) % MCV (78-100) fL MCH (26-32) pg MCHC (32-36) g/dL RDW (11.5-14.0) % Plt Count (150-450) x10^3/uL MPV (7.5-11.0) fL Gran % (36.0-66.0) % Immature Gran % (Auto) (0.00-0.4) % Nucleat RBC Rel Count (0.00-0.1) % Eos # (Auto) (0-0.5) x10^3/uL Immature Gran # (Auto) (0.00-0.03) x10^3u/L Absolute Lymphs (auto) (1.0-4.6) x10^3/uL Absolute Monos (auto) (0.0-1.3) x10^3/uL Absolute Nucleated RBC (0.00-0.01) x10^3u/L Lymphocytes % (24.0-44.0) % Monocytes % (0.0-12.0) % Eosinophils % (0.00-5.0) % Basophils % (0.0-0.4) % Absolute Granulocytes (1.4-6.9) x10^3/uL Basophils # (0-0.4) x10^3/uL Sodium 137 (137-145) mmol/L Potassium 3.8 (3.5-5.1) mmol/L Chloride 100 (98-107) mmol/L Carbon Dioxide 22 (22-30) mmol/L Anion Gap 17.7 H (5-15) MEQ/L BUN 66 H (7-17) mg/dL Creatinine 1.75 H (0.52-1.04) mg/dL Estimated GFR 31.8 ML/MIN Glucose 99 (74-106) mg/dL POC Glucometer (74 to 106) mg/dL Lactic Acid 1.4 (0.4-2.0) Calcium 8.7 D (8.4-10.2) mg/dL Total Bilirubin 0.90 (0.2-1.3) mg/dL AST 40 H (14-36) U/L ALT 46 H (0-35) U/L Alkaline Phosphatase 126 (38-126) U/L Troponin I (0.000-0.034) ng/mL NT-Pro-B Natriuret Pep (<300) pg/mL Serum Total Protein 7.8 (6.3-8.2) g/dL Albumin 4.3 (3.5-5.0) g/dL Amylase (30-110) U/L Lipase (23-300) U/L Procalcitonin (0.030-0.080) ng/mL Urine Color (Yellow) Urine Appearance (Clear) Urine pH (4.6-8.0) Ur Specific Louise (1.005-1.030) Urine Protein (Negative) Urine Glucose (UA) (Negative) mg/dL Urine Ketones (Negative) Urine Blood (Negative) Urine Nitrite (Negative) Urine Bilirubin (Negative) Urine Urobilinogen (0.2) mg/dL Ur Leukocyte Esterase (Negative) U Hyaline Cast (Auto) (0-2) /LPF Urine Microscopic RBC (0-5) /HPF Urine Microscopic WBC (0-5) /HPF Ur Epithelial Cells (None Seen) /HPF Urine Bacteria (None Seen) /HPF Waxy Casts (Auto) (None Seen) /LPF Urine Culture Reflexed (NO) Urine Opiates Level (NEGATIVE) Ur Methadone (NEGATIVE) Urine Barbiturates (NEGATIVE) Ur Phencyclidine (PCP) (NEGATIVE) Urine Amphetamine (NEGATIVE) U Benzodiazepine Level (NEGATIVE) Urine Cocaine (NEGATIVE) Urine Marijuana (THC) (NEGATIVE) Influenza Type A Ag NEGATIVE (NEGATIVE) Influenza Type B Ag NEGATIVE (NEGATIVE) RSV (PCR) NEGATIVE (NEGATIVE) SARS-CoV-2 (PCR) NEGATIVE (NEGATIVE) 05/07/23 05/07/23 05/07/23 Range/Units 15:55 16:21 16:35 WBC (4.0-10.5) x10^3/uL RBC (4.1-5.4) x10^6/uL Hgb (12.0-16.0) g/dL Hct (35-47) % MCV (78-100) fL MCH (26-32) pg MCHC (32-36) g/dL RDW (11.5-14.0) % Plt Count (150-450) x10^3/uL MPV (7.5-11.0) fL Gran % (36.0-66.0) % Immature Gran % (Auto) (0.00-0.4) % Nucleat RBC Rel Count (0.00-0.1) % Eos # (Auto) (0-0.5) x10^3/uL Immature Gran # (Auto) (0.00-0.03) x10^3u/L Absolute Lymphs (auto) (1.0-4.6) x10^3/uL Absolute Monos (auto) (0.0-1.3) x10^3/uL Absolute Nucleated RBC (0.00-0.01) x10^3u/L Lymphocytes % (24.0-44.0) % Monocytes % (0.0-12.0) % Eosinophils % (0.00-5.0) % Basophils % (0.0-0.4) % Absolute Granulocytes (1.4-6.9) x10^3/uL Basophils # (0-0.4) x10^3/uL Sodium (137-145) mmol/L Potassium (3.5-5.1) mmol/L Chloride (98-107) mmol/L Carbon Dioxide (22-30) mmol/L Anion Gap (5-15) MEQ/L BUN (7-17) mg/dL Creatinine (0.52-1.04) mg/dL Estimated GFR ML/MIN Glucose (74-106) mg/dL POC Glucometer 95 (74 to 106) mg/dL Lactic Acid (0.4-2.0) Calcium (8.4-10.2) mg/dL Total Bilirubin (0.2-1.3) mg/dL AST (14-36) U/L ALT (0-35) U/L Alkaline Phosphatase (38-126) U/L Troponin I (0.000-0.034) ng/mL NT-Pro-B Natriuret Pep 1530 (<300) pg/mL Serum Total Protein (6.3-8.2) g/dL Albumin (3.5-5.0) g/dL Amylase (30-110) U/L Lipase (23-300) U/L Procalcitonin (0.030-0.080) ng/mL Urine Color Yellow (Yellow) Urine Appearance Clear (Clear) Urine pH 5.0 (4.6-8.0) Ur Specific Louise 1.020 (1.005-1.030) Urine Protein Trace A (Negative) Urine Glucose (UA) Negative (Negative) mg/dL Urine Ketones 15 A (Negative) Urine Blood Negative (Negative) Urine Nitrite Negative (Negative) Urine Bilirubin Negative (Negative) Urine Urobilinogen 0.2 (0.2) mg/dL Ur Leukocyte Esterase Negative (Negative) U Hyaline Cast (Auto) 6-10 A (0-2) /LPF Urine Microscopic RBC 0-2 (0-5) /HPF Urine Microscopic WBC 0-2 (0-5) /HPF Ur Epithelial Cells None Seen (None Seen) /HPF Urine Bacteria None Seen (None Seen) /HPF Waxy Casts (Auto) 0-2 A (None Seen) /LPF Urine Culture Reflexed NO (NO) Urine Opiates Level (NEGATIVE) Ur Methadone (NEGATIVE) Urine Barbiturates (NEGATIVE) Ur Phencyclidine (PCP) (NEGATIVE) Urine Amphetamine (NEGATIVE) U Benzodiazepine Level (NEGATIVE) Urine Cocaine (NEGATIVE) Urine Marijuana (THC) (NEGATIVE) Influenza Type A Ag (NEGATIVE) Influenza Type B Ag (NEGATIVE) RSV (PCR) (NEGATIVE) SARS-CoV-2 (PCR) (NEGATIVE) 05/07/23 05/07/23 Range/Units 16:35 21:06 WBC (4.0-10.5) x10^3/uL RBC (4.1-5.4) x10^6/uL Hgb (12.0-16.0) g/dL Hct (35-47) % MCV (78-100) fL MCH (26-32) pg MCHC (32-36) g/dL RDW (11.5-14.0) % Plt Count (150-450) x10^3/uL MPV (7.5-11.0) fL Gran % (36.0-66.0) % Immature Gran % (Auto) (0.00-0.4) % Nucleat RBC Rel Count (0.00-0.1) % Eos # (Auto) (0-0.5) x10^3/uL Immature Gran # (Auto) (0.00-0.03) x10^3u/L Absolute Lymphs (auto) (1.0-4.6) x10^3/uL Absolute Monos (auto) (0.0-1.3) x10^3/uL Absolute Nucleated RBC (0.00-0.01) x10^3u/L Lymphocytes % (24.0-44.0) % Monocytes % (0.0-12.0) % Eosinophils % (0.00-5.0) % Basophils % (0.0-0.4) % Absolute Granulocytes (1.4-6.9) x10^3/uL Basophils # (0-0.4) x10^3/uL Sodium (137-145) mmol/L Potassium (3.5-5.1) mmol/L Chloride (98-107) mmol/L Carbon Dioxide (22-30) mmol/L Anion Gap (5-15) MEQ/L BUN (7-17) mg/dL Creatinine (0.52-1.04) mg/dL Estimated GFR ML/MIN Glucose (74-106) mg/dL POC Glucometer 211 H (74 to 106) mg/dL Lactic Acid (0.4-2.0) Calcium (8.4-10.2) mg/dL Total Bilirubin (0.2-1.3) mg/dL AST (14-36) U/L ALT (0-35) U/L Alkaline Phosphatase (38-126) U/L Troponin I (0.000-0.034) ng/mL NT-Pro-B Natriuret Pep (<300) pg/mL Serum Total Protein (6.3-8.2) g/dL Albumin (3.5-5.0) g/dL Amylase (30-110) U/L Lipase (23-300) U/L Procalcitonin (0.030-0.080) ng/mL Urine Color (Yellow) Urine Appearance (Clear) Urine pH (4.6-8.0) Ur Specific Louise (1.005-1.030) Urine Protein (Negative) Urine Glucose (UA) (Negative) mg/dL Urine Ketones (Negative) Urine Blood (Negative) Urine Nitrite (Negative) Urine Bilirubin (Negative) Urine Urobilinogen (0.2) mg/dL Ur Leukocyte Esterase (Negative) U Hyaline Cast (Auto) (0-2) /LPF Urine Microscopic RBC (0-5) /HPF Urine Microscopic WBC (0-5) /HPF Ur Epithelial Cells (None Seen) /HPF Urine Bacteria (None Seen) /HPF Waxy Casts (Auto) (None Seen) /LPF Urine Culture Reflexed (NO) Urine Opiates Level NEGATIVE (NEGATIVE) Ur Methadone NEGATIVE (NEGATIVE) Urine Barbiturates NEGATIVE (NEGATIVE) Ur Phencyclidine (PCP) NEGATIVE (NEGATIVE) Urine Amphetamine NEGATIVE (NEGATIVE) U Benzodiazepine Level NEGATIVE (NEGATIVE) Urine Cocaine NEGATIVE (NEGATIVE) Urine Marijuana (THC) NEGATIVE (NEGATIVE) Influenza Type A Ag (NEGATIVE) Influenza Type B Ag (NEGATIVE) RSV (PCR) (NEGATIVE) SARS-CoV-2 (PCR) (NEGATIVE) Radiology Exams: Radiology Procedures Category Date Time Status ABDOMEN AND PELVIS W/0 CONTRAS [CT] Stat Exams 05/07/23 16:02 Completed CHEST 2 VIEWS (PA AND LAT) Stat Exams 05/07/23 13:14 Completed Assessment/Plan (1) Sepsis Current Visit: Yes Status: Acute Assessment & Plan: -Sepsis criteria identified 05/07/22 -Unknown etiology -Patient has received 1L NS/ 1L LR for fluid resuscitation. -Contraindications to fluid resuscitation: CHF, EF 40% per pt report, continue gentle hydration at 75ml/hr -Blood cultures x2 ordered -Antibiotics started Merrem in ED, will continue zosyn empirically -Lactate drawn at 2.2 Repeat lactate 1.4 -Will admin vasopressors if hypotensive after IV admin (MAP <65 or SBP <90) -Supplemental o2 as needed to maintain spo2 > 92% -PCT, UA -CXR pending -Consider CT C/A/P if UA/CXR negative -Strict I&O -Tele -PPI -continue appropriate baseline home medications -PT/OT eval and tx -DVT prophylaxis-lovenox 40 mg SQ daily 05/08: -No longer meets sepsis criteria -WBC now wnl, lactic WNL -CT showing GB distention with sludge/stones ? etiology of infection -Continue Zosyn/IVF (2) WILIAN (acute kidney injury) Current Visit: Yes Status: Acute Assessment & Plan: -Most likely secondary to hypovolemia from N/V -NS at 75ml/hr -Monitor renal/lytes -avoid nephrotoxic agents PARAMJIT/ARBS/diuretics/NSAIDS 05/08: -Improving, continue IVF Code(s): N17.9 - ACUTE KIDNEY FAILURE, UNSPECIFIED (3) High anion gap metabolic acidosis Current Visit: Yes Status: Acute Assessment & Plan: -see sepsis -IVF -Zosyn 05/08: -resolved Code(s): E87.29 - OTHER ACIDOSIS (4) Transaminitis Current Visit: Yes Status: Acute Assessment & Plan: -Most likely reactive, will continue to trend, consider CT ab/pelv if no imp rovement -Recent lipid panel on 05/05/23 with triglycerides at 302 -Recent hep c negative 05/08: -resolved Code(s): R74.01 - ELEVATION OF LEVELS OF LIVER TRANSAMINASE LEVELS (5) Elevated serum protein level Current Visit: Yes Status: Acute Assessment & Plan: -spep with immonofixation -Check urine protein 05/08: -resolved Code(s): R77.9 - ABNORMALITY OF PLASMA PROTEIN, UNSPECIFIED (6) Hypercalcemia Current Visit: Yes Status: Acute Assessment & Plan: -IVF, continue to monitor -PTH w/ionized nguyễn 05/08: -resolved Code(s): E83.52 - HYPERCALCEMIA (7) Leukocytosis Current Visit: Yes Status: Acute Assessment & Plan: -see sepsis Code(s): D72.829 - ELEVATED WHITE BLOOD CELL COUNT, UNSPECIFIED (8) Erythrocytosis Current Visit: Yes Status: Acute Assessment & Plan: -May be reactive, continue to monitor 05/08: -resolved Code(s): D75.1 - SECONDARY POLYCYTHEMIA (9) Diabetes mellitus Current Visit: Yes Status: Acute Assessment & Plan: -SSI -Will hold insulin pump due to N/V and hypoglycemic episode -a1c 11.27 on 05/05/23 -CLD for now, then ADA once able to tolerate Code(s): E11.9 - TYPE 2 DIABETES MELLITUS WITHOUT COMPLICATIONS (10) Elevated troponin Current Visit: Yes Status: Acute Assessment & Plan: -most likely secondary to infection -EKG unremarkable -initial troponin elevated at 0.038, will trend Code(s): R79.89 - OTHER SPECIFIED ABNORMAL FINDINGS OF BLOOD CHEMISTRY (11) COPD (chronic obstructive pulmonary disease) Current Visit: Yes Status: Acute Assessment & Plan: -On RA -RT eval -Lungs clear on auscultation -Does not appear to be in exacerbation -Supplemental o2 as needed for goal spo2 > 92% -Nebs/inh prn (12) CHF (congestive heart failure) Current Visit: Yes Status: Acute Assessment & Plan: -Patient states recent EF on echo was 40%, will attempt to obtain records -Does not appear to be in exacerbation -Tele -Strict I&O -Consider ECHO when available -BNP -Optimize electrolytes for goal K>4, MG >2 -Monitor for fluid overload Code(s): I50.9 - HEART FAILURE, UNSPECIFIED (13) Nausea & vomiting Current Visit: Yes Status: Acute Assessment & Plan: -CT abd/pelvis, no contrast due to kidney function -anti-emetics (2) WILIAN (acute kidney injury) Current Visit: Yes Status: Acute Code(s): N17.9 - ACUTE KIDNEY FAILURE, UNSPECIFIED (3) High anion gap metabolic acidosis Current Visit: Yes Status: Acute Code(s): E87.29 - OTHER ACIDOSIS (4) Transaminitis Current Visit: Yes Status: Acute Code(s): R74.01 - ELEVATION OF LEVELS OF LIVER TRANSAMINASE LEVELS (5) Elevated serum protein level Current Visit: Yes Status: Acute Code(s): R77.9 - ABNORMALITY OF PLASMA PROTEIN, UNSPECIFIED (6) Hypercalcemia Current Visit: Yes Status: Acute Code(s): E83.52 - HYPERCALCEMIA (7) Leukocytosis Current Visit: Yes Status: Acute Code(s): D72.829 - ELEVATED WHITE BLOOD CELL COUNT, UNSPECIFIED (8) Erythrocytosis Current Visit: Yes Status: Acute Code(s): D75.1 - SECONDARY POLYCYTHEMIA (9) Diabetes mellitus Current Visit: Yes Status: Acute Code(s): E11.9 - TYPE 2 DIABETES MELLITUS WITHOUT COMPLICATIONS (10) Elevated troponin Current Visit: Yes Status: Acute Code(s): R79.89 - OTHER SPECIFIED ABNORMAL FINDINGS OF BLOOD CHEMISTRY (11) COPD (chronic obstructive pulmonary disease) Current Visit: Yes Status: Acute (12) CHF (congestive heart failure) Current Visit: Yes Status: Acute Code(s): I50.9 - HEART FAILURE, UNSPECIFIED (13) Nausea & vomiting Current Visit: Yes Status: Acute Code(s): R11.2 - NAUSEA WITH VOMITING, UNSPECIFIED
[2023-05-08] MEDS ORDERED: Lactated Ringers 1,000 ML IV ONE (06:19)
[2023-05-08 06:23] LABS: Absolute Neutrophil Ct (ANC) 6.14 x10^3/uL (1.4-6.9); BASOPHIL % 0.4 % (0.0-0.4); Basophil (Absolute #) 0.04 x10^3/uL (0-0.4); Eosinophil % 0.7 % (0.00-5.0); Eosinophil (Absolute #) 0.07 x10^3/uL (0-0.5); Hematocrit 37.5 % (35-47); Hemoglobin 12.2 g/dL (12.0-16.0); IMMATURE GRAN # 0.03 x10^3u/L (0.00-0.03); IMMATURE GRAN % 0.3 % (0.00-0.4); Lymphocyte (Absolute #) 2.64 x10^3/uL (1.0-4.6); Lymphocytes % 27.5 % (24.0-44.0); Mean Cell Volume 86.2 fL (78-100); Mean Corpuscular Hgb Concent. 32.5 g/dL (32-36); Mean Platelet Volume 9.8 fL (7.5-11.0); Monocyte (Absolute #) 0.68 x10^3/uL (0.0-1.3); Monocytes % 7.1 % (0.0-12.0); Platelet Count 212 x10^3/uL (150-450); Red Blood Count 4.35 x10^6/uL (4.1-5.4); Red Cell Distribution Width 12.8 % (11.5-14.0); White Blood Count 9.6 x10^3/uL (4.0-10.5)
[2023-05-08] MEDS: Lactated Ringers 1,000 ML IV SCH ×2 (06:24→21:37)
[2023-05-08 06:31] LABS: ALBUMIN 3.5 g/dL (3.5-5.0); ANION GAP 11.9 MEQ/L (5-15); BILIRUBIN,TOTAL 1.3 mg/dL (0.2-1.3); Calcium 8.4 mg/dL (8.4-10.2); Creatinine 1 1.68 mg/dL (0.52-1.04); EST GLOMERULAR FILTRATION RATE 33.3 ML/MIN; Potassium 3.9 mmol/L (3.5-5.1); Total Protein 6.3 g/dL (6.3-8.2)
[2023-05-08] MEDS ORDERED: MEDICATION INTERVENTION MC SCH (07:30)
[2023-05-08] MEDS: HUMALOG SQ PRN ×3 (08:27→21:41)
[2023-05-08] MEDS: Compazine 10 MG/2 ML IV PRN ×2 (08:43→19:36)
[2023-05-08] MEDS: PROTONIX 40 MG IV IV SCH (09:52)
[2023-05-08] MEDS: FISH OIL 1,000 MG CAPSULE PO SCH ×2 (09:52→21:37)
[2023-05-08] MEDS: COREG 12.5 MG PO SCH ×2 (09:52→21:38)
[2023-05-08] MEDS: ENTRESTO 49 MG-51 MG TABLET PO SCH ×2 (09:52→21:38)
[2023-05-08] MEDS ORDERED: NON-FORMULARY ITEM (Vortioxetine Hydrobromide [Trintellix] 20 MG Tablet) PO SCH (10:00)
[2023-05-08] MEDS ORDERED: ENOXAPARIN SODIUM SQ SCH ×2 (10:00)
[2023-05-08] MEDS: Piperacillin/Tazobactam 2.25 GM 2.25 GM in Sodium Chloride 100ML MINI-BAG PLUS 100 ML IV SCH ×2 (13:04→18:17)
[2023-05-08] MEDS: ZOCOR 20MG PO SCH (21:37)
[2023-05-08] MEDS: Ambien 10 MG PO SCH (21:37)
[2023-05-09] MEDS: Piperacillin/Tazobactam 2.25 GM 2.25 GM in Sodium Chloride 100ML MINI-BAG PLUS 100 ML IV SCH ×5 (00:02→23:17)
[2023-05-09 04:44] LABS: Absolute Neutrophil Ct (ANC) 6.47 x10^3/uL (1.4-6.9); BASOPHIL % 0.4 % (0.0-0.4); Basophil (Absolute #) 0.04 x10^3/uL (0-0.4); Eosinophil % 1.2 % (0.00-5.0); Eosinophil (Absolute #) 0.11 x10^3/uL (0-0.5); Hematocrit 37.7 % (35-47); Hemoglobin 11.9 g/dL (12.0-16.0); IMMATURE GRAN # 0.02 x10^3u/L (0.00-0.03); IMMATURE GRAN % 0.2 % (0.00-0.4); Lymphocyte (Absolute #) 2.22 x10^3/uL (1.0-4.6); Lymphocytes % 23.5 % (24.0-44.0); Mean Cell Volume 87.9 fL (78-100); Mean Corpuscular Hemoglobin 27.7 pg (26-32); Mean Corpuscular Hgb Concent. 31.6 g/dL (32-36); Mean Platelet Volume 9.7 fL (7.5-11.0); Monocyte (Absolute #) 0.57 x10^3/uL (0.0-1.3); Neutrophil % 68.7 % (36.0-66.0); Platelet Count 175 x10^3/uL (150-450); Red Blood Count 4.29 x10^6/uL (4.1-5.4); Red Cell Distribution Width 12.5 % (11.5-14.0); White Blood Count 9.4 x10^3/uL (4.0-10.5)
--- NOTE | 2023-05-09 05:08 | PCM.NOTE ---
Date and Time: 05/09/23 0506 Subjective Assessment: Ms. Burgos is a 68 year old female admitted with a three day history of nausea and vomiting. Septic on presentation. CT imaging demonstrates a distended gallbladder with sludge/tiny stones. Surgery consulted, plans for surgical intervention if cleared by anesthesia. Current treatment with Zosyn and anti-e metics. 05/09/23: Met with patient bedside. Endorses nausea is controlled with anti-emetics, no further episodes of vomiting, and was able to tolerate a diet yesterday. WILIAN resolving. No longer meeting sepsis criteria. Plan for surgical intervention today if anesthesia clears her. Denies fever,cough, sob, cp, abdominal pain, TORIBIO, dizziness, or V/D. - Review of Systems Constitutional: No Symptoms Eyes: No Symptoms Ears, Nose, & Throat: No Symptoms Respiratory: No Symptoms Cardiac: No Symptoms Abdominal/Gastrointestinal: Nausea Genitourinary Symptoms: No Symptoms Musculoskeletal: No Symptoms Skin: No Symptoms Neurological: No Symptoms Psychological: No Symptoms Endocrine: No Symptoms Hematologic/Lymphatic: No Symptoms Immunological/Allergic: No Symptoms Objective Exam General Appearance: no apparent distress Neurologic Exam: alert, oriented x 3, cooperative Skin Exam: normal color Eye Exam: PERRL Ears, Nose, Throat Exam: normal ENT inspection Neck Exam: normal inspection Respiratory Exam: normal breath sounds, lungs clear Cardiovascular Exam: regular rate/rhythm, normal heart sounds Gastrointestinal/Abdomen Exam: soft, normal bowel sounds Extremity Exam: normal inspection Back Exam: normal inspection Pelvic Exam: deferred Rectal Exam: deferred OBJECTIVE DATA Vital Signs: Vital Signs - 24 hr Temp Pulse Resp BP Pulse Ox 05/09/23 04:00 97.6 F 77 18 118/56 91 L 05/09/23 00:00 97.1 F 78 18 109/51 93 L 05/08/23 19:58 97.8 F 75 20 96/55 93 L 05/08/23 16:00 97.7 F 79 17 107/59 93 L 05/08/23 12:00 97.6 F 86 16 109/55 90 L 05/08/23 07:34 97.4 F 82 17 123/57 90 L Pain Assessment - Last Documented Pain Intensity 3 Intake and Output: Intake & Output 05/06/23 05/07/23 05/08/23 05/09/23 11:59 11:59 11:59 11:59 Intake Total 3103 2689 Output Total 1227 5363 Balance 5268 1289 Weight 58.2 kg 60.7 kg Lab Results: Lab Results-Last 24 Hours 05/08/23 05/08/23 05/08/23 Range/Units 06:02 06:02 06:02 WBC 9.6 (4.0-10.5) x10^3/uL RBC 4.35 (4.1-5.4) x10^6/uL Hgb 12.2 D (12.0-16.0) g/dL Hct 37.5 (35-47) % MCV 86.2 (78-100) fL MCH 28.0 (26-32) pg MCHC 32.5 (32-36) g/dL RDW 12.8 (11.5-14.0) % Plt Count 212 D (150-450) x10^3/uL MPV 9.8 (7.5-11.0) fL Gran % 64.0 (36.0-66.0) % Immature Gran % (Auto) 0.3 (0.00-0.4) % Nucleat RBC Rel Count 0.0 (0.00-0.1) % Eos # (Auto) 0.07 (0-0.5) x10^3/uL Immature Gran # (Auto) 0.03 (0.00-0.03) x10^3u/L Absolute Lymphs (auto) 2.64 (1.0-4.6) x10^3/uL Absolute Monos (auto) 0.68 (0.0-1.3) x10^3/uL Absolute Nucleated RBC 0.00 (0.00-0.01) x10^3u/L Lymphocytes % 27.5 (24.0-44.0) % Monocytes % 7.1 (0.0-12.0) % Eosinophils % 0.7 (0.00-5.0) % Basophils % 0.4 (0.0-0.4) % Absolute Granulocytes 6.14 (1.4-6.9) x10^3/uL Basophils # 0.04 (0-0.4) x10^3/uL Sodium 131 L (137-145) mmol/L Potassium 3.9 (3.5-5.1) mmol/L Chloride 99 (98-107) mmol/L Carbon Dioxide 24 (22-30) mmol/L Anion Gap 11.9 (5-15) MEQ/L BUN 47 H (7-17) mg/dL Creatinine 1.68 H (0.52-1.04) mg/dL Estimated GFR 33.3 ML/MIN Glucose 255 H (74-106) mg/dL POC Glucometer (74 to 106) mg/dL Calcium 8.4 (8.4-10.2) mg/dL Total Bilirubin 1.30 (0.2-1.3) mg/dL AST 32 (14-36) U/L ALT 32 (0-35) U/L Alkaline Phosphatase 105 (38-126) U/L Troponin I 0.045 H* (0.000-0.034) ng/mL Serum Total Protein 6.3 (6.3-8.2) g/dL Albumin 3.5 (3.5-5.0) g/dL 05/08/23 05/08/23 05/08/23 Range/Units 07:14 12:46 16:31 WBC (4.0-10.5) x10^3/uL RBC (4.1-5.4) x10^6/uL Hgb (12.0-16.0) g/dL Hct (35-47) % MCV (78-100) fL MCH (26-32) pg MCHC (32-36) g/dL RDW (11.5-14.0) % Plt Count (150-450) x10^3/uL MPV (7.5-11.0) fL Gran % (36.0-66.0) % Immature Gran % (Auto) (0.00-0.4) % Nucleat RBC Rel Count (0.00-0.1) % Eos # (Auto) (0-0.5) x10^3/uL Immature Gran # (Auto) (0.00-0.03) x10^3u/L Absolute Lymphs (auto) (1.0-4.6) x10^3/uL Absolute Monos (auto) (0.0-1.3) x10^3/uL Absolute Nucleated RBC (0.00-0.01) x10^3u/L Lymphocytes % (24.0-44.0) % Monocytes % (0.0-12.0) % Eosinophils % (0.00-5.0) % Basophils % (0.0-0.4) % Absolute Granulocytes (1.4-6.9) x10^3/uL Basophils # (0-0.4) x10^3/uL Sodium (137-145) mmol/L Potassium (3.5-5.1) mmol/L Chloride (98-107) mmol/L Carbon Dioxide (22-30) mmol/L Anion Gap (5-15) MEQ/L BUN (7-17) mg/dL Creatinine (0.52-1.04) mg/dL Estimated GFR ML/MIN Glucose (74-106) mg/dL POC Glucometer 253 H 270 H 301 H (74 to 106) mg/dL Calcium (8.4-10.2) mg/dL Total Bilirubin (0.2-1.3) mg/dL AST (14-36) U/L ALT (0-35) U/L Alkaline Phosphatase (38-126) U/L Troponin I (0.000-0.034) ng/mL Serum Total Protein (6.3-8.2) g/dL Albumin (3.5-5.0) g/dL 05/08/23 Range/Units 21:16 WBC (4.0-10.5) x10^3/uL RBC (4.1-5.4) x10^6/uL Hgb (12.0-16.0) g/dL Hct (35-47) % MCV (78-100) fL MCH (26-32) pg MCHC (32-36) g/dL RDW (11.5-14.0) % Plt Count (150-450) x10^3/uL MPV (7.5-11.0) fL Gran % (36.0-66.0) % Immature Gran % (Auto) (0.00-0.4) % Nucleat RBC Rel Count (0.00-0.1) % Eos # (Auto) (0-0.5) x10^3/uL Immature Gran # (Auto) (0.00-0.03) x10^3u/L Absolute Lymphs (auto) (1.0-4.6) x10^3/uL Absolute Monos (auto) (0.0-1.3) x10^3/uL Absolute Nucleated RBC (0.00-0.01) x10^3u/L Lymphocytes % (24.0-44.0) % Monocytes % (0.0-12.0) % Eosinophils % (0.00-5.0) % Basophils % (0.0-0.4) % Absolute Granulocytes (1.4-6.9) x10^3/uL Basophils # (0-0.4) x10^3/uL Sodium (137-145) mmol/L Potassium (3.5-5.1) mmol/L Chloride (98-107) mmol/L Carbon Dioxide (22-30) mmol/L Anion Gap (5-15) MEQ/L BUN (7-17) mg/dL Creatinine (0.52-1.04) mg/dL Estimated GFR ML/MIN Glucose (74-106) mg/dL POC Glucometer 271 H (74 to 106) mg/dL Calcium (8.4-10.2) mg/dL Total Bilirubin (0.2-1.3) mg/dL AST (14-36) U/L ALT (0-35) U/L Alkaline Phosphatase (38-126) U/L Troponin I (0.000-0.034) ng/mL Serum Total Protein (6.3-8.2) g/dL Albumin (3.5-5.0) g/dL Radiology Exams: Radiology Procedures Category Date Time Status ABDOMEN AND PELVIS W/0 CONTRAS [CT] Stat Exams 05/07/23 16:02 Completed CHEST 2 VIEWS (PA AND LAT) Stat Exams 05/07/23 13:14 Completed Multi-Disciplinary Progress Notes: Multi-Disciplinary Progress Notes 05/08/23 07:32 Pharmacy Note by Boris Torres Lovenox changed to 30mg dose. Zosyn changed to 2.25gm dose per renal dosing policy. Estimated CRCL is 25ml/min. Initialized on 05/08/23 07:32 - END OF NOTE Assessment/Plan (1) Sepsis Current Visit: Yes Status: Acute Assessment & Plan: -Sepsis criteria identified 05/07/22 -Unknown etiology -Patient has received 1L NS/ 1L LR for fluid resuscitation. -Contraindications to fluid resuscitation: CHF, EF 40% per pt report, continue gentle hydration at 75ml/hr -Blood cultures x2 ordered -Antibiotics started Merrem in ED, will continue zosyn empirically -Lactate drawn at 2.2 Repeat lactate 1.4 -Will admin vasopressors if hypotensive after IV admin (MAP <65 or SBP <90) -Supplemental o2 as needed to maintain spo2 > 92% -PCT, UA -CXR pending -Consider CT C/A/P if UA/CXR negative -Strict I&O -Tele -PPI -continue appropriate baseline home medications -PT/OT eval and tx -DVT prophylaxis-lovenox 40 mg SQ daily 05/08: -No longer meets sepsis criteria -WBC now wnl, lactic WNL -CT showing GB distention with sludge/stones ? etiology of infection -Continue Zosyn/IVF #Cholelihiasis 05/09: -Surgery consulted, plan for surgical intervention, pending anesthesia (2) WILIAN (acute kidney injury) Current Visit: Yes Status: Acute Assessment & Plan: -Most likely secondary to hypovolemia from N/V -NS at 75ml/hr -Monitor renal/lytes -avoid nephrotoxic agents PARAMJIT/ARBS/diuretics/NSAIDS 05/08: -Improving, continue IVF 05/09: -creat now near baseline 1.08<2.23 Code(s): N17.9 - ACUTE KIDNEY FAILURE, UNSPECIFIED (3) High anion gap metabolic acidosis Current Visit: Yes Status: Acute Assessment & Plan: -see sepsis -IVF -Zosyn 05/08: -resolved Code(s): E87.29 - OTHER ACIDOSIS (4) Transaminitis Current Visit: Yes Status: Acute Assessment & Plan: -Most likely reactive, will continue to trend, consider CT ab/pelv if no improvement -Recent lipid panel on 05/05/23 with triglycerides at 302 -Recent hep c negative 05/08: -resolved Code(s): R74.01 - ELEVATION OF LEVELS OF LIVER TRANSAMINASE LEVELS (5) Elevated serum protein level Current Visit: Yes Status: Acute Assessment & Plan: -spep with immonofixation -Check urine protein 05/08: -resolved Code(s): R77.9 - ABNORMALITY OF PLASMA PROTEIN, UNSPECIFIED (6) Hypercalcemia Current Visit: Yes Status: Acute Assessment & Plan: -IVF, continue to monitor -PTH w/ionized nguyễn 05/08: -resolved Code(s): E83.52 - HYPERCALCEMIA (7) Leukocytosis Current Visit: Yes Status: Acute Assessment & Plan: -see sepsis 05/09: -resolved Code(s): D72.829 - ELEVATED WHITE BLOOD CELL COUNT, UNSPECIFIED (8) Erythrocytosis Current Visit: Yes Status: Acute Assessment & Plan: -May be reactive, continue to monitor 05/08: -resolved Code(s): D75.1 - SECONDARY POLYCYTHEMIA (9) Diabetes mellitus Current Visit: Yes Status: Acute Assessment & Plan: -SSI -Will hold insulin pump due to N/V and hypoglycemic episode -a1c 11.27 on 05/05/23 -CLD for now, then ADA once able to tolerate 05/09: -NPO for planned surgical intervention, hold SSI Code(s): E11.9 - TYPE 2 DIABETES MELLITUS WITHOUT COMPLICATIONS (10) Elevated troponin Current Visit: Yes Status: Acute Assessment & Plan: -most likely secondary to infection -EKG unremarkable -initial troponin elevated at 0.038, will trend Code(s): R79.89 - OTHER SPECIFIED ABNORMAL FINDINGS OF BLOOD CHEMISTRY (11) COPD (chronic obstructive pulmonary disease) Current Visit: Yes Status: Acute Assessment & Plan: -On RA -RT eval -Lungs clear on auscultation -Does not appear to be in exacerbation -Supplemental o2 as needed for goal spo2 > 92% -Nebs/inh prn (12) CHF (congestive heart failure) Current Visit: Yes Status: Acute Assessment & Plan: -Patient states recent EF on echo was 40%, will attempt to obtain records -Does not appear to be in exacerbation -Tele -Strict I&O -Consider ECHO when available -BNP -Optimize electrolytes for goal K>4, MG >2 -Monitor for fluid overload Code(s): I50.9 - HEART FAILURE, UNSPECIFIED (13) Nausea & vomiting Current Visit: Yes Status: Acute Assessment & Plan: -CT abd/pelvis, no contrast due to kidney function -anti-emetics 05/09: -CT showing distended GB with cholelithiasis, surgery consulted with plans for intervention if cleared by anesthesia (2) Cholelithiases Current Visit: Yes Status: Acute (3) WILIAN (acute kidney injury) Current Visit: Yes Status: Acute Code(s): N17.9 - ACUTE KIDNEY FAILURE, UNSPECIFIED (4) High anion gap metabolic acidosis Current Visit: Yes Status: Acute Code(s): E87.29 - OTHER ACIDOSIS (5) Transaminitis Current Visit: Yes Status: Acute Code(s): R74.01 - ELEVATION OF LEVELS OF LIVER TRANSAMINASE LEVELS (6) Elevated serum protein level Current Visit: Yes Status: Acute Code(s): R77.9 - ABNORMALITY OF PLASMA PROTEIN, UNSPECIFIED (7) Hypercalcemia Current Visit: Yes Status: Acute Code(s): E83.52 - HYPERCALCEMIA (8) Leukocytosis Current Visit: Yes Status: Acute Code(s): D72.829 - ELEVATED WHITE BLOOD CELL COUNT, UNSPECIFIED (9) Erythrocytosis Current Visit: Yes Status: Acute Code(s): D75.1 - SECONDARY POLYCYTHEMIA (10) Diabetes mellitus Current Visit: Yes Status: Acute Code(s): E11.9 - TYPE 2 DIABETES MELLITUS WITHOUT COMPLICATIONS (11) Elevated troponin Current Visit: Yes Status: Acute Code(s): R79.89 - OTHER SPECIFIED ABNORMAL FINDINGS OF BLOOD CHEMISTRY (12) COPD (chronic obstructive pulmonary disease) Current Visit: Yes Status: Acute (13) CHF (congestive heart failure) Current Visit: Yes Status: Acute Code(s): I50.9 - HEART FAILURE, UNSPECIFIED (14) Nausea & vomiting Current Visit: Yes Status: Acute Code(s): R11.2 - NAUSEA WITH VOMITING, UNSPECIFIED
[2023-05-09 05:11] LABS: ALBUMIN 3.3 g/dL (3.5-5.0); ANION GAP 7.3 MEQ/L (5-15); BILIRUBIN,TOTAL 0.9 mg/dL (0.2-1.3); Calcium 8.4 mg/dL (8.4-10.2); Creatinine 1 1.08 mg/dL (0.52-1.04); EST GLOMERULAR FILTRATION RATE 56.7 ML/MIN; Potassium 4.1 mmol/L (3.5-5.1); Total Protein 6.1 g/dL (6.3-8.2)
[2023-05-09] MEDS: PROTONIX 40 MG IV IV SCH (10:11)
[2023-05-09] MEDS: ENTRESTO 49 MG-51 MG TABLET PO SCH ×2 (10:11→21:38)
[2023-05-09] MEDS: COREG 12.5 MG PO SCH ×2 (10:11→21:37)
[2023-05-09] MEDS: FISH OIL 1,000 MG CAPSULE PO SCH ×2 (10:21→21:37)
--- NOTE | 2023-05-09 11:35 | CONS ---
CONSULT DATE: 05/08/2023 HISTORY: This is the second day that the patient has been here. A 68-year-old female admitted for a few days with nausea and vomiting. She had distended gallbladder with some tiny stones. She has significant history of congestive heart failure, chronic obstructive pulmonary disease, hypertension and diabetes mellitus type II. She had traumatic brain injury, torn vena cava and she had pelvic fracture years ago from an injury and also some chronic pain. She denied abdominal pain now. She had nausea, vomiting and said it is a little bit improved. Her blood pressure 109/52, pulse 75, temperature 97.3F. Her liver function tests were within normal limits this morning. PAST MEDICAL HISTORY: She has significant history of congestive heart failure, chronic obstructive pulmonary disease, hypertension and diabetes mellitus type II. She had traumatic brain injury, torn vena cava and she had pelvic fracture years ago from an injury and also some chronic pain. She denies any chronic blood thinner use according to the patient. She had seen her heart doctor in the past month or so. PAST SURGICAL HISTORY: Pacemaker/defibrillator in the past. section in the past. She denied any upper abdominal surgery. She had hysterectomy. Orthopedic shoulder surgery x2, knee surgery, elbow surgery. Pacemaker battery replacement in the past. Clavicle fracture. HOME MEDICATIONS: Atorvastatin, carvedilol, Vascepa, insulin pump, pantoprazole, Entresto, Trintellix, Ambien. ALLERGIES: NKDA. ONION (HIVES). SOAP (HIVES). FAMILY HISTORY: Heart disease, diabetes, hypertension. SOCIAL HISTORY: History of smoking. No alcohol abuse. REVIEW OF SYSTEMS: Fourteen systems reviewed per admission assessment. PHYSICAL EXAMINATION: GENERAL: No acute distress. HEENT: Sclera nonicteric. EOMI. Oral mucous membranes moist. NECK: No JVD. CHEST: Equal excursion, nonlabored breathing. CVS: Regular rate and rhythm. ABDOMEN: Soft. No peritoneal signs. EXTREMITIES: No significant edema. NEURO: Alert. PSYCH: Appropriate mood and affect. SKIN: Dry. IMPRESSION: History of nausea and vomiting. History of distended gallbladder with sludge and impacted stones. She is feeling just a little bit better now. Discussed the option of cholecystectomy as likely she has acute exacerbation of chronic cholecystitis, differential including viral syndrome, gastritis, peptic ulcer disease or other etiology. Either way again discussed option of laparoscopic cholecystectomy. General risk of bleeding or infection, risk of trocar injury or hernia, risk of bowel, bladder or blood vessel injury, risk of bile leak, bile duct injury, retained stone or sludge possibly requiring further procedure either open or ERCP, general risk of anesthesia, deep venous thrombosis, pulmonary embolism, pneumonia, perioperative risk of aches, pains, bloating, constipation and/or loose stools possibly even chronic in nature and possible no improvement in her symptoms possibly requiring endoscopy, other studies or procedures. She understands. Will have anesthesia evaluate the patient to see if she is a surgical candidate at this facility. If she is will consider cholecystectomy tomorrow.
[2023-05-09] MEDS: Lactated Ringers 1,000 ML IV SCH (12:37)
[2023-05-09] MEDS ORDERED: Versed 2 MG/2 ML Injection ONE (13:29)
[2023-05-09] MEDS ORDERED: Sensorcaine 0.25% 10 ML ONE (14:08)
[2023-05-09] MEDS ORDERED: Xylocaine-Mpf 2% 5 Ml Vial ONE (14:13)
[2023-05-09] MEDS ORDERED: Zemuron 100 MG/10 ML ONE (14:13)
[2023-05-09] MEDS ORDERED: Decadron 4 MG INJ ONE (14:13)
[2023-05-09] MEDS ORDERED: BRIDION 200MG/2ML IV ONE (14:13)
[2023-05-09] MEDS ORDERED: SUBLIMAZE 100 MCG/2 ML ONE ×2 (14:13→16:25)
[2023-05-09] MEDS ORDERED: DIPRIVAN 200 MG/20 ML IV ONE (14:13)
[2023-05-09] MEDS ORDERED: Zofran 4 MG/2 ML VIAL ONE (14:13)
[2023-05-09] MEDS ORDERED: PHENYLEPHRINE HCL ONE (14:19)
[2023-05-09] MEDS ORDERED: OFIRMEV 100 ML IV ONE (14:28)
[2023-05-09] MEDS ORDERED: Pre-Attached Lta Kit TP ONE (14:28)
[2023-05-09] MEDS ORDERED: MEFOXIN 2 GM PREMIX** 2 GM/50 ML ML IV ONE (14:39)
[2023-05-09] MEDS ORDERED: Ephedrine Sulfate 50 MG/ML ONE (15:15)
[2023-05-09] MEDS ORDERED: APRESOLINE 20 MG/ML INJ ONE (15:26)
[2023-05-09] MEDS ORDERED: MORPHINE SULFATE 4 MG INJ IV PRN (17:33)
[2023-05-09] MEDS ORDERED: NORCO 5/325 MG ONE (19:13)
[2023-05-09] MEDS: NORCO 5/325 MG PO PRN (19:16)
[2023-05-09] MEDS ORDERED: MORPHINE SULFATE 2 MG INJ IV PRN (19:36)
[2023-05-09] MEDS: HUMALOG SQ PRN (21:31)
[2023-05-09] MEDS: Ambien 10 MG PO SCH (21:37)
[2023-05-09] MEDS: ZOCOR 20MG PO SCH (21:37)
[2023-05-10] MEDS: NORCO 5/325 MG PO PRN ×3 (02:18→11:55)
--- NOTE | 2023-05-10 05:07 | PCM.NOTE ---
Date and Time: 05/10/23 1361 Subjective Assessment: Ms. Burgos is a 68 year old female admitted with a three day history of nausea and vomiting. Septic on presentation. CT imaging demonstrates a distended gallbladder with sludge/tiny stones. Surgery consulted,patient underwent lap cholecystectomy. IP treatment with Zosyn and anti-emetics. Discharge Note New Diagnosis:Cholelithiases New Medications: Follow Up: PCP Results pending: Latest Assessment & Plan (1) Sepsis Current Visit: Yes Status: Acute Assessment & Plan: -Sepsis criteria identified 05/07/22 -Unknown etiology -Patient has received 1L NS/ 1L LR for fluid resuscitation. -Contraindications to fluid resuscitation: CHF, EF 40% per pt report, continue gentle hydration at 75ml/hr -Blood cultures x2 ordered -Antibiotics started Merrem in ED, will continue zosyn empirically -Lactate drawn at 2.2 Repeat lactate 1.4 -Will admin vasopressors if hypotensive after IV admin (MAP <65 or SBP <90) -Supplemental o2 as needed to maintain spo2 > 92% -PCT, UA -CXR pending -Consider CT C/A/P if UA/CXR negative -Strict I&O -Tele -PPI -continue appropriate baseline home medications -PT/OT eval and tx -DVT prophylaxis-lovenox 40 mg SQ daily 05/08: -No longer meets sepsis criteria -WBC now wnl, lactic WNL -CT showing GB distention with sludge/stones ? etiology of infection -Continue Zosyn/IVF #Cholelihiasis 05/09: -Surgery consulted, plan for surgical intervention, pending anesthesia (2) WILIAN (acute kidney injury) Current Visit: Yes Status: Acute Assessment & Plan: -Most likely secondary to hypovolemia from N/V -NS at 75ml/hr -Monitor renal/lytes -avoid nephrotoxic agents PARAMJIT/ARBS/diuretics/NSAIDS 05/08: -Improving, continue IVF 05/09: -creat now near baseline 1.08<2.23 Code(s): N17.9 - ACUTE KIDNEY FAILURE, UNSPECIFIED (3) High anion gap metabolic acidosis Current Visit: Yes Status: Acute Assessment & Plan: -see sepsis -IVF -Zosyn 05/08: -resolved Code(s): E87.29 - OTHER ACIDOSIS (4) Transaminitis Current Visit: Yes Status: Acute Assessment & Plan: -Most likely reactive, will continue to trend, consider CT ab/pelv if no improvement -Recent lipid panel on 05/05/23 with triglycerides at 302 -Recent hep c negative 05/08: -resolved Code(s): R74.01 - ELEVATION OF LEVELS OF LIVER TRANSAMINASE LEVELS (5) Elevated serum protein level Current Visit: Yes Status: Acute Assessment & Plan: -spep with immonofixation -Check urine protein 05/08: -resolved Code(s): R77.9 - ABNORMALITY OF PLASMA PROTEIN, UNSPECIFIED (6) Hypercalcemia Current Visit: Yes Status: Acute Assessment & Plan: -IVF, continue to monitor -PTH w/ionized nguyễn 05/08: -resolved Code(s): E83.52 - HYPERCALCEMIA (7) Leukocytosis Current Visit: Yes Status: Acute Assessment & Plan: -see sepsis 05/09: -resolved Code(s): D72.829 - ELEVATED WHITE BLOOD CELL COUNT, UNSPECIFIED (8) Erythrocytosis Current Visit: Yes Status: Acute Assessment & Plan: -May be reactive, continue to monitor 05/08: -resolved Code(s): D75.1 - SECONDARY POLYCYTHEMIA (9) Diabetes mellitus Current Visit: Yes Status: Acute Assessment & Plan: -SSI -Will hold insulin pump due to N/V and hypoglycemic episode -a1c 11.27 on 05/05/23 -CLD for now, then ADA once able to tolerate 05/09: -NPO for planned surgical intervention, hold SSI Code(s): E11.9 - TYPE 2 DIABETES MELLITUS WITHOUT COMPLICATIONS (10) Elevated troponin Current Visit: Yes Status: Acute Assessment & Plan: -most likely secondary to infection -EKG unremarkable -initial troponin elevated at 0.038, will trend Code(s): R79.89 - OTHER SPECIFIED ABNORMAL FINDINGS OF BLOOD CHEMISTRY (11) COPD (chronic obstructive pulmonary disease) Current Visit: Yes Status: Acute Assessment & Plan: -On RA -RT eval -Lungs clear on auscultation -Does not appear to be in exacerbation -Supplemental o2 as needed for goal spo2 > 92% -Nebs/inh prn (12) CHF (congestive heart failure) Current Visit: Yes Status: Acute Assessment & Plan: -Patient states recent EF on echo was 40%, will attempt to obtain records -Does not appear to be in exacerbation -Tele -Strict I&O -Consider ECHO when available -BNP -Optimize electrolytes for goal K>4, MG >2 -Monitor for fluid overload Code(s): I50.9 - HEART FAILURE, UNSPECIFIED (13) Nausea & vomiting Current Visit: Yes Status: Acute Assessment & Plan: -CT abd/pelvis, no contrast due to kidney function -anti-emetics 05/09: -CT showing distended GB with cholelithiasis, surgery consulted with plans for intervention if cleared by anesthesia I spent 35 minutes [id number] with the patient on the day of discharge performing discharge exam, discussing hospital stay and discharge instructions with patient and caregivers, preparation of discharge records, prescriptions & referral forms and addressing any questions/concerns the patient had as documented above. OBJECTIVE DATA Vital Signs: Vital Signs - 24 hr Temp Pulse Resp BP Pulse Ox 05/10/23 04:00 98.0 F 91 H 18 128/58 92 L 05/09/23 23:05 80 16 133/60 95 05/09/23 18:30 78 118/56 05/09/23 18:00 71 122/58 05/09/23 17:45 77 119/56 05/09/23 17:30 74 117/56 96 05/09/23 16:00 78 17 127/58 91 L 05/09/23 13:00 97.7 F 76 17 119/56 93 L 05/09/23 11:57 97.7 F 76 17 119/56 93 L 05/09/23 07:28 97.0 F 74 16 110/54 89 L Pain Assessment - Last Documented Pain Intensity 0 Pain Scale Used 0-10 Pain Scale Intake and Output: Intake & Output 05/07/23 05/08/23 05/09/23 05/10/23 11:59 11:59 11:59 11:59 Intake Total 3103 2689 50 Output Total 1225 1400 1000 Balance 1878 1289 -950 Weight 58.2 kg 60.7 kg 60.7 kg Lab Results: Lab Results-Last 24 Hours 05/09/23 05/09/23 05/09/23 Range/Units 04:33 04:33 05:20 WBC 9.4 (4.0-10.5) x10^3/uL RBC 4.29 (4.1-5.4) x10^6/uL Hgb 11.9 L (12.0-16.0) g/dL Hct 37.7 (35-47) % MCV 87.9 (78-100) fL MCH 27.7 (26-32) pg MCHC 31.6 L (32-36) g/dL RDW 12.5 (11.5-14.0) % Plt Count 175 (150-450) x10^3/uL MPV 9.7 (7.5-11.0) fL Gran % 68.7 H (36.0-66.0) % Immature Gran % (Auto) 0.2 (0.00-0.4) % Nucleat RBC Rel Count 0.0 (0.00-0.1) % Eos # (Auto) 0.11 (0-0.5) x10^3/uL Immature Gran # (Auto) 0.02 (0.00-0.03) x10^3u/L Absolute Lymphs (auto) 2.22 (1.0-4.6) x10^3/uL Absolute Monos (auto) 0.57 (0.0-1.3) x10^3/uL Absolute Nucleated RBC 0.00 (0.00-0.01) x10^3u/L Lymphocytes % 23.5 L (24.0-44.0) % Monocytes % 6.0 (0.0-12.0) % Eosinophils % 1.2 (0.00-5.0) % Basophils % 0.4 (0.0-0.4) % Absolute Granulocytes 6.47 (1.4-6.9) x10^3/uL Basophils # 0.04 (0-0.4) x10^3/uL Sodium 135 L (137-145) mmol/L Potassium 4.1 (3.5-5.1) mmol/L Chloride 107 (98-107) mmol/L Carbon Dioxide 25 (22-30) mmol/L Anion Gap 7.3 (5-15) MEQ/L BUN 29 H (7-17) mg/dL Creatinine 1.08 H (0.52-1.04) mg/dL Estimated GFR 56.7 ML/MIN Glucose 196 H (74-106) mg/dL POC Glucometer (74 to 106) mg/dL Calcium 8.4 (8.4-10.2) mg/dL Total Bilirubin 0.90 (0.2-1.3) mg/dL AST 28 (14-36) U/L ALT 30 (0-35) U/L Alkaline Phosphatase 95 (38-126) U/L NT-Pro-B Natriuret Pep 201 (<300) pg/mL Serum Total Protein 6.1 L (6.3-8.2) g/dL Albumin 3.3 L (3.5-5.0) g/dL 05/09/23 05/09/23 05/09/23 Range/Units 07:11 11:51 17:41 WBC (4.0-10.5) x10^3/uL RBC (4.1-5.4) x10^6/uL Hgb (12.0-16.0) g/dL Hct (35-47) % MCV (78-100) fL MCH (26-32) pg MCHC (32-36) g/dL RDW (11.5-14.0) % Plt Count (150-450) x10^3/uL MPV (7.5-11.0) fL Gran % (36.0-66.0) % Immature Gran % (Auto) (0.00-0.4) % Nucleat RBC Rel Count (0.00-0.1) % Eos # (Auto) (0-0.5) x10^3/uL Immature Gran # (Auto) (0.00-0.03) x10^3u/L Absolute Lymphs (auto) (1.0-4.6) x10^3/uL Absolute Monos (auto) (0.0-1.3) x10^3/uL Absolute Nucleated RBC (0.00-0.01) x10^3u/L Lymphocytes % (24.0-44.0) % Monocytes % (0.0-12.0) % Eosinophils % (0.00-5.0) % Basophils % (0.0-0.4) % Absolute Granulocytes (1.4-6.9) x10^3/uL Basophils # (0-0.4) x10^3/uL Sodium (137-145) mmol/L Potassium (3.5-5.1) mmol/L Chloride (98-107) mmol/L Carbon Dioxide (22-30) mmol/L Anion Gap (5-15) MEQ/L BUN (7-17) mg/dL Creatinine (0.52-1.04) mg/dL Estimated GFR ML/MIN Glucose (74-106) mg/dL POC Glucometer 194 H 200 H 254 H (74 to 106) mg/dL Calcium (8.4-10.2) mg/dL Total Bilirubin (0.2-1.3) mg/dL AST (14-36) U/L ALT (0-35) U/L Alkaline Phosphatase (38-126) U/L NT-Pro-B Natriuret Pep (<300) pg/mL Serum Total Protein (6.3-8.2) g/dL Albumin (3.5-5.0) g/dL 05/09/23 Range/Units 21:25 WBC (4.0-10.5) x10^3/uL RBC (4.1-5.4) x10^6/uL Hgb (12.0-16.0) g/dL Hct (35-47) % MCV (78-100) fL MCH (26-32) pg MCHC (32-36) g/dL RDW (11.5-14.0) % Plt Count (150-450) x10^3/uL MPV (7.5-11.0) fL Gran % (36.0-66.0) % Immature Gran % (Auto) (0.00-0.4) % Nucleat RBC Rel Count (0.00-0.1) % Eos # (Auto) (0-0.5) x10^3/uL Immature Gran # (Auto) (0.00-0.03) x10^3u/L Absolute Lymphs (auto) (1.0-4.6) x10^3/uL Absolute Monos (auto) (0.0-1.3) x10^3/uL Absolute Nucleated RBC (0.00-0.01) x10^3u/L Lymphocytes % (24.0-44.0) % Monocytes % (0.0-12.0) % Eosinophils % (0.00-5.0) % Basophils % (0.0-0.4) % Absolute Granulocytes (1.4-6.9) x10^3/uL Basophils # (0-0.4) x10^3/uL Sodium (137-145) mmol/L Potassium (3.5-5.1) mmol/L Chloride (98-107) mmol/L Carbon Dioxide (22-30) mmol/L Anion Gap (5-15) MEQ/L BUN (7-17) mg/dL Creatinine (0.52-1.04) mg/dL Estimated GFR ML/MIN Glucose (74-106) mg/dL POC Glucometer 294 H (74 to 106) mg/dL Calcium (8.4-10.2) mg/dL Total Bilirubin (0.2-1.3) mg/dL AST (14-36) U/L ALT (0-35) U/L Alkaline Phosphatase (38-126) U/L NT-Pro-B Natriuret Pep (<300) pg/mL Serum Total Protein (6.3-8.2) g/dL Albumin (3.5-5.0) g/dL Assessment/Plan (1) Sepsis Current Visit: Yes Status: Acute (2) Cholelithiases Current Visit: Yes Status: Acute (3) WILIAN (acute kidney injury) Current Visit: Yes Status: Acute Code(s): N17.9 - ACUTE KIDNEY FAILURE, UNSPECIFIED (4) High anion gap metabolic acidosis Current Visit: Yes Status: Acute Code(s): E87.29 - OTHER ACIDOSIS (5) Transaminitis Current Visit: Yes Status: Acute Code(s): R74.01 - ELEVATION OF LEVELS OF LIVER TRANSAMINASE LEVELS (6) Elevated serum protein level Current Visit: Yes Status: Acute Code(s): R77.9 - ABNORMALITY OF PLASMA PROTEIN, UNSPECIFIED (7) Hypercalcemia Current Visit: Yes Status: Acute Code(s): E83.52 - HYPERCALCEMIA (8) Leukocytosis Current Visit: Yes Status: Acute Code(s): D72.829 - ELEVATED WHITE BLOOD CELL COUNT, UNSPECIFIED (9) Erythrocytosis Current Visit: Yes Status: Acute Code(s): D75.1 - SECONDARY POLYCYTHEMIA (10) Diabetes mellitus Current Visit: Yes Status: Acute Code(s): E11.9 - TYPE 2 DIABETES MELLITUS WITHOUT COMPLICATIONS (11) Elevated troponin Current Visit: Yes Status: Acute Code(s): R79.89 - OTHER SPECIFIED ABNORMAL FINDINGS OF BLOOD CHEMISTRY (12) COPD (chronic obstructive pulmonary disease) Current Visit: Yes Status: Acute (13) CHF (congestive heart failure) Current Visit: Yes Status: Acute Code(s): I50.9 - HEART FAILURE, UNSPECIFIED (14) Nausea & vomiting Current Visit: Yes Status: Acute Code(s): R11.2 - NAUSEA WITH VOMITING, UNSPECIFIED
[2023-05-10 05:21] LABS: BASOPHIL % 0.1 % (0.0-0.4); Basophil (Absolute #) 0.01 x10^3/uL (0-0.4); Eosinophil (Absolute #) 0 x10^3/uL (0-0.5); Hematocrit 36.8 % (35-47); Hemoglobin 11.7 g/dL (12.0-16.0); IMMATURE GRAN # 0.02 x10^3u/L (0.00-0.03); IMMATURE GRAN % 0.3 % (0.00-0.4); Lymphocyte (Absolute #) 1.13 x10^3/uL (1.0-4.6); Lymphocytes % 16.2 % (24.0-44.0); Mean Corpuscular Hgb Concent. 31.8 g/dL (32-36); Monocyte (Absolute #) 0.23 x10^3/uL (0.0-1.3); Monocytes % 3.3 % (0.0-12.0); Neutrophil % 80.1 % (36.0-66.0); Platelet Count 180 x10^3/uL (150-450); Red Blood Count 4.18 x10^6/uL (4.1-5.4); Red Cell Distribution Width 12.3 % (11.5-14.0)
[2023-05-10] MEDS: Piperacillin/Tazobactam 2.25 GM 2.25 GM in Sodium Chloride 100ML MINI-BAG PLUS 100 ML IV SCH ×2 (05:35→11:54)
[2023-05-10 05:38] LABS: ALBUMIN 3.6 g/dL (3.5-5.0); ANION GAP 8.2 MEQ/L (5-15); BILIRUBIN,TOTAL 0.8 mg/dL (0.2-1.3); Calcium 8.7 mg/dL (8.4-10.2); Creatinine 1 0.94 mg/dL (0.52-1.04); EST GLOMERULAR FILTRATION RATE 66.9 ML/MIN; Potassium 4.6 mmol/L (3.5-5.1); Total Protein 6.4 g/dL (6.3-8.2)
[2023-05-10] MEDS: ENTRESTO 49 MG-51 MG TABLET PO SCH (08:55)
[2023-05-10] MEDS: FISH OIL 1,000 MG CAPSULE PO SCH (08:56)
[2023-05-10] MEDS: COREG 12.5 MG PO SCH (08:56)
[2023-05-10] MEDS: PROTONIX 40 MG IV IV SCH (08:57)
[2023-05-10] MEDS: HUMALOG SQ PRN (09:09)
--- NOTE | 2023-05-10 09:17 | OP ---
SURGERY DATE/TIME: 05/09/2023 1428 PREOPERATIVE DIAGNOSES: 1) Intractable nausea, vomiting and abdominal pain. 2) Cholelithiasis/chronic cholecystitis. 3) Significant chronic heart disease. POSTOPERATIVE DIAGNOSIS: 1) Intractable nausea, vomiting and abdominal pain. 2) Cholelithiasis/chronic cholecystitis. 3) Acute exacerbation of chronic cholecystitis. 4) Significant chronic heart disease. PROCEDURE: Laparoscopic cholecystectomy. SURGEON: Dr. Carter Freitas. ANESTHESIA: General. ESTIMATED BLOOD LOSS: Minimal. INDICATIONS: As noted above. Risks and benefits explained in detail but not limited to and consent obtained. DESCRIPTION OF PROCEDURE AND FINDINGS: The patient was taken to the operating room. General anesthesia induced. Anesthesia placed a PICC line preoperatively as well. Abdomen prepped and draped in usual sterile fashion. After official time out and no disagreement with planned procedure, a transverse incision made in the supraumbilical area. Fascia grasped, pulled upward. Veress needle inserted and tested with saline. Pneumoperitoneum accomplished opening pressure of 0-15. A 5 mm bladeless port and camera were inserted without difficulty followed by two - 5 mm right upper quadrant ports and 11 mm epigastric port placed. The gallbladder was very distended and had acute exacerbation of chronic cholecystitis. Dissected posterior, lateral to anterior fashion slowly and carefully the cystic duct and cystic artery skeletonized until critical view obtained both anteriorly and posteriorly. It should be noted the cystic artery was kind of splintering out laterally this is carefully isolated, clipped x3 and divided this went up the angle. Cystic duct and infundibular area were slowly carefully well skeletonized and the critical view had been obtained. The cystic duct was clipped x3 and divided in usual fashion. The gallbladder is slowly and carefully dissected free from its dense attachments to the liver bed clipping additional oozing side branch off of the cystic artery/vein directly on the gallbladder wall as necessary. Once it is dissected out further given the bulk of the gallbladder it seemed to almost want to disintegrate in the fragile wall. It was elected to go ahead and aspirate at this point. Aspirated initial 50 cc and then sucked an additional large amount with suction corn chip maker, decompressing the gallbladder and then continue with dissection staying directly on the gallbladder wall to anterior edge of the liver. Just prior to releasing from final attachments to the anterior edge of the liver, the liver bed re-inspected. Clips noted in place in the cystic duct and cystic artery stumps. No signs of any active bleeding or bile leakage. It was felt there is no benefit of drain placement. The gallbladder was released from its final attachments to anterior edge of the liver placed in the provided sac pulled up and out, spreading the fascia a little bit with the clamp, the bag and gallbladder out the 11 mm epigastric port site and passed off. Copious amount of irrigation accomplished lateral to the liver and subhepatic space irrigating clear. Liver bed re-inspected. Clips noted to be in place cystic duct and cystic artery stumps. No signs of any active bleeding or bile leakage. It was felt there was no benefit in drain placement. After closing the fascia defect at the 10/11 site with puncture closure device with #1 Vicryl, pneumoperitoneum decompressed. The wound irrigated out. Skin incision closed with 4-0 Vicryl. 0.25% Marcaine local injected along the skin incision fascial defect. There were no immediate complications. The skin incision closed with 4-0 Vicryl, Steri-Strips and sterile dressing applied. There were no immediate complications. Findings discussed with the family out in the waiting area.
[2023-05-10] MEDS ORDERED: Mylicon 80MG PO PRN (10:22)
--- NOTE | 2023-05-10 11:34 | PCM.DS ---
Discharge Summary Date of Admission: 05/07/23 14:28 Date of Discharge: 05/10/23 Admitting Physician: BETTE CARRILLO MD Consults: Consults on Case 05/08/23 10:47 Consult Surgery ROUTINE 05/09/23 07:00 Notify Anesthesia Provider ROUTINE Primary Care Provider: DEMARIO TRUJILLO Allergies Allergies onion Allergy (Verified 05/07/23 11:43) Hives raw onions soap Adverse Reaction (Verified 05/07/23 11:43) Hives [facility] Summary - Hospital Course Hospital Course: Ms. Burgos is a 68 year old female admitted with a three day history of nausea and vomiting. Septic on presentation. CT imaging demonstrates a distended gallbladder with sludge/tiny stones. Surgery consulted, Lap emma performed without complication. Patient is doing well s/p procedure, labs/vitals stable. Patient has been cleared by surgery for discharge with follow up in two weeks. Discharge Note New Diagnosis: Cholelithiasis New Medications:[place] Follow Up: PCP/Surgery Latest Assessment & Plan (1) Sepsis Current Visit: Yes Status: Acute Assessment & Plan: -Sepsis criteria identified 05/07/22 -Unknown etiology -Patient has received 1L NS/ 1L LR for fluid resuscitation. -Contraindications to fluid resuscitation: CHF, EF 40% per pt report, continue gentle hydration at 75ml/hr -Blood cultures x2 ordered -Antibiotics started Merrem in ED, will continue zosyn empirically -Lactate drawn at 2.2 Repeat lactate 1.4 -Will admin vasopressors if hypotensive after IV admin (MAP <65 or SBP <90) -Supplemental o2 as needed to maintain spo2 > 92% -PCT, UA -CXR pending -Consider CT C/A/P if UA/CXR negative -Strict I&O -Tele -PPI -continue appropriate baseline home medications -PT/OT eval and tx -DVT prophylaxis-lovenox 40 mg SQ daily 05/08: -No longer meets sepsis criteria -WBC now wnl, lactic WNL -CT showing GB distention with sludge/stones ? etiology of infection -Continue Zosyn/IVF #Cholelithiasis 05/09: -Surgery consulted, plan for surgical intervention, pending anesthesia (2) WILIAN (acute kidney injury) Current Visit: Yes Status: Acute Assessment & Plan: -Most likely secondary to hypovolemia from N/V -NS at 75ml/hr -Monitor renal/lytes -avoid nephrotoxic agents PARAMJIT/ARBS/diuretics/NSAIDS 05/08: -Improving, continue IVF 05/09: -creat now near baseline 1.08<2.23 Code(s): N17.9 - ACUTE KIDNEY FAILURE, UNSPECIFIED (3) High anion gap metabolic acidosis Current Visit: Yes Status: Acute Assessment & Plan: -see sepsis -IVF -Zosyn 05/08: -resolved Code(s): E87.29 - OTHER ACIDOSIS (4) Transaminitis Current Visit: Yes Status: Acute Assessment & Plan: -Most likely reactive, will continue to trend, consider CT ab/pelv if no improvement -Recent lipid panel on 05/05/23 with triglycerides at 302 -Recent hep c negative 05/08: -resolved Code(s): R74.01 - ELEVATION OF LEVELS OF LIVER TRANSAMINASE LEVELS (5) Elevated serum protein level Current Visit: Yes Status: Acute Assessment & Plan: -spep with immonofixation -Check urine protein 05/08: -resolved Code(s): R77.9 - ABNORMALITY OF PLASMA PROTEIN, UNSPECIFIED (6) Hypercalcemia Current Visit: Yes Status: Acute Assessment & Plan: -IVF, continue to monitor -PTH w/ionized nguyễn 05/08: -resolved Code(s): E83.52 - HYPERCALCEMIA (7) Leukocytosis Current Visit: Yes Status: Acute Assessment & Plan: -see sepsis 05/09: -resolved Code(s): D72.829 - ELEVATED WHITE BLOOD CELL COUNT, UNSPECIFIED (8) Erythrocytosis Current Visit: Yes Status: Acute Assessment & Plan: -May be reactive, continue to monitor 05/08: -resolved Code(s): D75.1 - SECONDARY POLYCYTHEMIA (9) Diabetes mellitus Current Visit: Yes Status: Acute Assessment & Plan: -SSI -Will hold insulin pump due to N/V and hypoglycemic episode -a1c 11.27 on 05/05/23 -CLD for now, then ADA once able to tolerate 05/09: -NPO for planned surgical intervention, hold SSI Code(s): E11.9 - TYPE 2 DIABETES MELLITUS WITHOUT COMPLICATIONS (10) Elevated troponin Current Visit: Yes Status: Acute Assessment & Plan: -most likely secondary to infection -EKG unremarkable -initial troponin elevated at 0.038, will trend Code(s): R79.89 - OTHER SPECIFIED ABNORMAL FINDINGS OF BLOOD CHEMISTRY (11) COPD (chronic obstructive pulmonary disease) Current Visit: Yes Status: Acute Assessment & Plan: -On RA -RT eval -Lungs clear on auscultation -Does not appear to be in exacerbation -Supplemental o2 as needed for goal spo2 > 92% -Nebs/inh prn (12) CHF (congestive heart failure) Current Visit: Yes Status: Acute Assessment & Plan: -Patient states recent EF on echo was 40%, will attempt to obtain records -Does not appear to be in exacerbation -Tele -Strict I&O -Consider ECHO when available -BNP -Optimize electrolytes for goal K>4, MG >2 -Monitor for fluid overload Code(s): I50.9 - HEART FAILURE, UNSPECIFIED (13) Nausea & vomiting Current Visit: Yes Status: Acute Assessment & Plan: -CT abd/pelvis, no contrast due to kidney function -anti-emetics 05/09: -CT showing distended GB with cholelithiasis, surgery consulted with plans for intervention if cleared by anesthesia I spent 35 minutes [id number] with the patient on the day of discharge performing discharge exam, discussing hospital stay and discharge instructions with patient and caregivers, preparation of discharge records, prescriptions & referral forms and addressing any questions/concerns the patient had as documented above. - Vitals & Intake/Output Vital Signs: Vital Signs Temperature 98 F 05/10/23 08:00 Pulse Rate 78 05/10/23 08:00 Respiratory Rate 16 05/10/23 08:00 Blood Pressure 140/65 05/10/23 08:00 O2 Sat by Pulse Oximetry 91 L 05/10/23 08:00 Intake & Output: Intake & Output 05/07/23 05/08/23 05/09/23 05/10/23 11:59 11:59 11:59 11:59 Intake Total 3103 2689 290 Output Total 1225 1400 1400 Balance 1878 1289 -1110 Weight 58.2 kg 60.7 kg 60.7 kg - Lab Result Diagrams: 05/10/23 05:00 05/10/23 05:00 Lab Results-Last 24 Hrs: Lab Results-Last 24 Hours 05/09/23 05/09/23 05/09/23 Range/Units 11:51 17:41 21:25 WBC (4.0-10.5) x10^3/uL RBC (4.1-5.4) x10^6/uL Hgb (12.0-16.0) g/dL Hct (35-47) % MCV (78-100) fL MCH (26-32) pg MCHC (32-36) g/dL RDW (11.5-14.0) % Plt Count (150-450) x10^3/uL MPV (7.5-11.0) fL Gran % (36.0-66.0) % Immature Gran % (Auto) (0.00-0.4) % Nucleat RBC Rel Count (0.00-0.1) % Eos # (Auto) (0-0.5) x10^3/uL Immature Gran # (Auto) (0.00-0.03) x10^3u/L Absolute Lymphs (auto) (1.0-4.6) x10^3/uL Absolute Monos (auto) (0.0-1.3) x10^3/uL Absolute Nucleated RBC (0.00-0.01) x10^3u/L Lymphocytes % (24.0-44.0) % Monocytes % (0.0-12.0) % Eosinophils % (0.00-5.0) % Basophils % (0.0-0.4) % Absolute Granulocytes (1.4-6.9) x10^3/uL Basophils # (0-0.4) x10^3/uL Sodium (137-145) mmol/L Potassium (3.5-5.1) mmol/L Chloride (98-107) mmol/L Carbon Dioxide (22-30) mmol/L Anion Gap (5-15) MEQ/L BUN (7-17) mg/dL Creatinine (0.52-1.04) mg/dL Estimated GFR ML/MIN Glucose (74-106) mg/dL POC Glucometer 200 H 254 H 294 H (74 to 106) mg/dL Calcium (8.4-10.2) mg/dL Total Bilirubin (0.2-1.3) mg/dL AST (14-36) U/L ALT (0-35) U/L Alkaline Phosphatase (38-126) U/L Serum Total Protein (6.3-8.2) g/dL Albumin (3.5-5.0) g/dL 05/10/23 05/10/23 Range/Units 05:00 05:00 WBC 7.0 (4.0-10.5) x10^3/uL RBC 4.18 (4.1-5.4) x10^6/uL Hgb 11.7 L (12.0-16.0) g/dL Hct 36.8 (35-47) % MCV 88.0 (78-100) fL MCH 28.0 (26-32) pg MCHC 31.8 L (32-36) g/dL RDW 12.3 (11.5-14.0) % Plt Count 180 (150-450) x10^3/uL MPV 10.0 (7.5-11.0) fL Gran % 80.1 H (36.0-66.0) % Immature Gran % (Auto) 0.3 (0.00-0.4) % Nucleat RBC Rel Count 0.0 (0.00-0.1) % Eos # (Auto) 0 (0-0.5) x10^3/uL Immature Gran # (Auto) 0.02 (0.00-0.03) x10^3u/L Absolute Lymphs (auto) 1.13 (1.0-4.6) x10^3/uL Absolute Monos (auto) 0.23 (0.0-1.3) x10^3/uL Absolute Nucleated RBC 0.00 (0.00-0.01) x10^3u/L Lymphocytes % 16.2 L (24.0-44.0) % Monocytes % 3.3 (0.0-12.0) % Eosinophils % 0.0 (0.00-5.0) % Basophils % 0.1 (0.0-0.4) % Absolute Granulocytes 5.60 (1.4-6.9) x10^3/uL Basophils # 0.01 (0-0.4) x10^3/uL Sodium 131 L (137-145) mmol/L Potassium 4.6 (3.5-5.1) mmol/L Chloride 101 (98-107) mmol/L Carbon Dioxide 27 (22-30) mmol/L Anion Gap 8.2 (5-15) MEQ/L BUN 19 H (7-17) mg/dL Creatinine 0.94 (0.52-1.04) mg/dL Estimated GFR 66.9 ML/MIN Glucose 240 H (74-106) mg/dL POC Glucometer (74 to 106) mg/dL Calcium 8.7 (8.4-10.2) mg/dL Total Bilirubin 0.80 (0.2-1.3) mg/dL AST 42 H (14-36) U/L ALT 40 H (0-35) U/L Alkaline Phosphatase 108 (38-126) U/L Serum Total Protein 6.4 (6.3-8.2) g/dL Albumin 3.6 (3.5-5.0) g/dL Micro Results-Entire Visit: Microbiology 05/07/23 16:09 Blood Culture - Preliminary Blood 05/07/23 15:55 Blood Culture - Preliminary Blood Accuchecks Date 05/10/23 Date 05/09/23 Date 05/09/23 Date 05/09/23 Time 07:45 Time 17:42 Time 11:57 - Procedures and Test Procedures and Tests throughout Hospitalization: Therapy Orders & Screens 05/07/23 15:36 EKG REPEAT IN AM Comment: Diagnosis: dehydration, Hypoglycemia Respiratory Therapy Consult ONCE Comment: Reason For Exam: Diagnosis: dehydration, Hypoglycemia 05/07/23 17:29 OT Screen per Nursing Assess ONCE Comment: Protocol Order Physician Instructions: Greater than 3 points order OT Admission Screening Reason For Exam: Triggered on Admission Diagnosis: dehydration, Hypoglycemia Open Wound/Cellutlitis/Pressure Ulcers: No Acute Fx/ORIF/Change in wt bearing status: No Severe MUSCULOSKELETAL pain: Yes ADL Dysfunction: Yes Acute CVA w/Hemiparesis/Hemiplegia: No Decreased Functional Mobility/Strength: Yes Sprain/Strain: No Acute Post-op Mobility Dysfunction: No Total Points: 9 PT Screen per Nursing Assess ONCE Comment: Protocol Order Physician Instructions: Greater than 3 points order PT Admission Screenin Reason For Exam: Triggered on Admission Diagnosis: dehydration, Hypoglycemia Open Wound/Cellutlitis/Pressure Ulcers: No Acute Fx/ORIF/Change in wt bearing status: No Severe MUSCULOSKELETAL pain: Yes ADL Dysfunction: Yes Acute CVA w/Hemiparesis/Hemiplegia: No Decreased Functional Mobility/Strength: Yes Sprain/Strain: No Acute Post-op Mobility Dysfunction: No Total Points: 9 Smoking Cessation Education ONCE Comment: Diagnosis: dehydration, Hypoglycemia Smoking Status: Current every day smoker How long have you smoked: 48 yrs Have you smoked in the past 12 months: Yes Approximately how many cigarettes per day: 20 Do you dip or chew tobacco: No ST Screen per Nursing Assess ONCE Comment: Protocol Order Physician Instructions: Greater than [address] Admission Screening Reason For Exam: Triggered on Admission Diagnosis: dehydration, Hypoglycemia CVA/Dyshpagia/Aphasia: No Cognitive Deficits: Yes: TBI Dehydration/Nutrition Deficit: Yes Reflux: No Oral-Motor Difficulties: No Pneumonia: No Snf Resident: No Total Points: 8 Discharge Exam General Appearance: no apparent distress Neurologic Exam: alert, oriented x 3, cooperative Eye Exam: PERRL Ears, Nose, Throat Exam: normal ENT inspection Neck Exam: normal inspection Respiratory Exam: normal breath sounds, lungs clear Cardiovascular Exam: regular rate/rhythm, normal heart sounds Gastrointestinal/Abdomen Exam: soft, normal bowel sounds, other (surgical incsion CDI) Pelvic Exam: deferred Rectal Exam: deferred Back Exam: normal inspection Extremity Exam: normal inspection Skin Exam: other (surgical puncture sites to abdomen CDI no surrounding erythema/streaking) Final Diagnosis/Problem List - Final Discharge Diagnosis/Problem (1) Sepsis Current Visit: Yes Status: Resolved (2) Cholelithiases Current Visit: Yes Status: Resolved (3) WILIAN (acute kidney injury) Current Visit: Yes Status: Resolved Code(s): N17.9 - ACUTE KIDNEY FAILURE, UNSPECIFIED (4) High anion gap metabolic acidosis Current Visit: Yes Status: Resolved Code(s): E87.29 - OTHER ACIDOSIS (5) Transaminitis Current Visit: Yes Status: Resolved Code(s): R74.01 - ELEVATION OF LEVELS OF LIVER TRANSAMINASE LEVELS (6) Elevated serum protein level Current Visit: Yes Status: Resolved Code(s): R77.9 - ABNORMALITY OF PLASMA PROTEIN, UNSPECIFIED (7) Hypercalcemia Current Visit: Yes Status: Resolved Code(s): E83.52 - HYPERCALCEMIA (8) Leukocytosis Current Visit: Yes Status: Resolved Code(s): D72.829 - ELEVATED WHITE BLOOD CELL COUNT, UNSPECIFIED (9) Erythrocytosis Current Visit: Yes Status: Resolved Code(s): D75.1 - SECONDARY POLYCYTHEMIA (10) Diabetes mellitus Current Visit: Yes Status: Chronic Code(s): E11.9 - TYPE 2 DIABETES MELLITUS WITHOUT COMPLICATIONS (11) Elevated troponin Current Visit: Yes Status: Resolved Code(s): R79.89 - OTHER SPECIFIED ABNORMAL FINDINGS OF BLOOD CHEMISTRY (12) COPD (chronic obstructive pulmonary disease) Current Visit: Yes Status: Chronic (13) CHF (congestive heart failure) Current Visit: Yes Status: Chronic Code(s): I50.9 - HEART FAILURE, UNSPECIFIED (14) Nausea & vomiting Current Visit: Yes Status: Resolved Code(s): R11.2 - NAUSEA WITH VOMITING, UNSPECIFIED - Discharge Disposition: Home, Self-Care Condition: Stable Prescriptions: New Hydrocodone/Acetaminophen [Hydrocodone-Acetamin 5-325 mg] 1 tab PO Q4HPRN PRN #15 tablet MDD 6 PRN Reason: Pain Continue Vortioxetine Hydrobromide [Trintellix] 20 mg PO DAILY Carvedilol 12.5 mg [Coreg 12.5 mg] 25 mg PO BID Sacubitril/Valsartan [Entresto 24 mg-26 mg Tablet] 1 tab PO BID Atorvastatin Calcium [Lipitor] 80 mg PO HS Insulin Pump Cart,Cont Inf,Bt [Omnipod Dash Pods (Gen 4)] See Rx Instructions .ROUTE .COMPLEX PANTOPRAZOLE 40 mg Tablet [Protonix 40MG Tablet] 40 mg PO QAM Icosapent Ethyl [Vascepa] 2 gm PO BID Zolpidem Tartrate 10 mg [Ambien 10 MG] 10 mg PO HS Insulin Lispro [Humalog Kwikpen U-100] 100 unit SQ UD Semaglutide [Ozempic] 2 mg SQ TH Spironolactone 25 mg [Aldactone 25 MG] 25 mg PO BID Insulin Degludec [Tresiba Flextouch U-100] 20 units SQ DAILY Follow up with: JOSY COON [COURTESY STAFF] - 2 weeks DEMARIO TRUJILLO MD [Primary Care Provider] - (1-2 weeks)
[2023-05-10 13:09] VITALS: BP 119/58; PULSE 84; RESP 17; TEMP 97.4; O2SAT 93
== END 2023-05-10 13:40 | disposition home or self-care (01) ==
LOC: ED 11:30 → MED SURG 14:28
PROVIDERS: ADMIT Internal Medicine; ATTEND Internal Medicine
DX: A41.9 Sepsis, unspecified organism (principal); K80.20 Calculus of gallbladder without cholecystitis without obstruction; N17.9 Acute kidney failure, unspecified; E87.29 Other acidosis; R74.01 Elevation of levels of liver transaminase levels; R77.9 Abnormality of plasma protein, unspecified; E83.52 Hypercalcemia; D72.829 Elevated white blood cell count, unspecified; D75.1 Secondary polycythemia; E11.9 Type 2 diabetes mellitus without complications; R79.89 Other specified abnormal findings of blood chemistry; J44.9 Chronic obstructive pulmonary disease, unspecified; I11.0 Hypertensive heart disease with heart failure; I50.9 Heart failure, unspecified; R11.2 Nausea with vomiting, unspecified; F17.200 Nicotine dependence, unspecified, uncomplicated; Z79.899 Other long term (current) drug therapy; Z20.828 Contact with and (suspected) exposure to other viral communicable diseases; Z87.820 Personal history of traumatic brain injury
CPT/HCPCS: 0241U; 36000; 36415; 47562; 71046; 74176; 80053; 80307; 81001; 82150; 82947; 83605; 83690; 83880; 84145; 84484; 85025; 87040; 93005; 96374; 96375; 96376; 99285; 99291; Q3014; 93268; J0360; J0694; J1100; J1650; J1817; J2250; J2270; J2371; J2405; J2543; J2704; J3010; A9270-GY; G0378

== ENCOUNTER 2023-06-06 10:04 | Day surgery (SDC) | payer MEDICARE, OTHER ==
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
[2023-06-06] MEDS ORDERED: Lactated Ringers 1,000 ML IV ONE (10:12)
[2023-06-06] MEDS: Lactated Ringers 1,000 ML IV SCH (10:16)
[2023-06-06 10:22] VITALS: RESP 18
[2023-06-06] MEDS ORDERED: DIPRIVAN 200 MG/20 ML IV ONE (12:10)
[2023-06-06] MEDS ORDERED: Amidate 20 MG/10 ML IV ONE (12:12)
[2023-06-06 13:15] VITALS: BP 105/63; PULSE 74; TEMP 97.1; O2SAT 93
--- NOTE | 2023-06-06 13:41 | OP ---
SURGERY DATE/TIME: 06/06/2023 1211 PREOPERATIVE DIAGNOSIS: Persistent nausea unrelieved by cholecystectomy for chronic cholecystitis, need for upper endoscopy for evaluation. POSTOPERATIVE DIAGNOSIS: Gastritis. PROCEDURES: 1) EGD with cold biopsy of small bowel to evaluate for celiac sprue. 2) Cold biopsy of the antrum to evaluate for Helicobacter pylori. 3) Cold biopsy of mid esophagus to evaluate for eosinophilic esophagitis. SURGEON: Dr. Carter Freitas M.D. ANESTHESIA: MAC. ESTIMATED BLOOD LOSS: Minimal. INDICATIONS: As noted above. Risks and benefits explained in detail and consent obtained. DESCRIPTION OF PROCEDURE AND FINDINGS: The patient is taken to the endoscopy room. MAC anesthesia introduced. After official time out and no disagreement with planned procedure, a bite block positioned. Video gastroscope easily passed down the esophagus through the patent pylorus to the junction of third and fourth portion of the duodenum. Duodenum fairly unremarkable. No gross ulcerations. Cold biopsy taken to evaluate for celiac sprue and for path. Good hemostasis noted. Scope pulled back in the stomach. She did have some mild to moderate gastritis. No gross ulceration. No obvious masses or mucosal lesions other than the gastritis. Cold biopsy is taken to evaluate for Helicobacter pylori. Good hemostasis noted. On retroflex, the gastroesophageal junction snug against the scope. No signs of any large hiatal hernia on retroflex view. The scope pulled back. The gastroesophageal junction at about 38 cm. The Z-line was fairly crisp. No signs of any erosions. No signs of any ulcers or masses. Random cold biopsy taken in the esophagus to evaluate for eosinophilic esophagitis to evaluate for other causes of her symptoms. Good hemostasis noted. There was no family out in the waiting room immediately after the procedure. I will see her back in the office next week.
== END 2023-06-06 13:25 | disposition home or self-care (01) ==
LOC: SDC 10:04
PROVIDERS: ATTEND Surgery
DX: K29.70 Gastritis, unspecified, without bleeding (principal); R11.0 Nausea; Z80.0 Family history of malignant neoplasm of digestive organs; E11.9 Type 2 diabetes mellitus without complications; K22.70 Barrett's esophagus without dysplasia
CPT/HCPCS: 82947; J2704

== ENCOUNTER 2023-07-25 08:04 | Emergency (ER) | payer MEDICARE, OTHER ==
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
[2023-07-25 08:17] VITALS: TEMP 97
--- NOTE | 2023-07-25 08:54 | XRAY ---
Indication: Pain following fall. Comparison: November 29, 2018 3 nonweightbearing views left foot demonstrates new nondisplaced corner fracture base 2nd proximal phalanx medial aspect, tiny incomplete vertical fracture head 2nd proximal phalanx with intra-articular extension, and 2nd toe soft tissue swelling. Remaining foot unchanged again with osteopenia, moderate/advanced 1st MTP degenerative changes, and tiny heel spurs. Impression: New fractures 2nd phalanx as detailed. Again incidental osteopenia, heel spurs, and degenerative changes
[2023-07-25 09:10] VITALS: BP 149/102; PULSE 78; RESP 19; O2SAT 92
== END 2023-07-25 09:28 | disposition home or self-care (01) ==
LOC: ED 08:04
DX: S92.515A Nondisplaced fracture of proximal phalanx of left lesser toe(s), initial encounter for closed fracture (principal); I11.0 Hypertensive heart disease with heart failure; I50.9 Heart failure, unspecified; E11.9 Type 2 diabetes mellitus without complications; Z79.4 Long term (current) use of insulin; Z79.85 Long-term (current) use of injectable non-insulin antidiabetic drugs; Z79.899 Other long term (current) drug therapy; Z72.0 Tobacco use
CPT/HCPCS: 73630; 99283

== ENCOUNTER 2023-12-16 16:33 | Emergency (ER) | payer MEDICARE ==
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
[2023-12-16 16:53] VITALS: TEMP 97.7
--- NOTE | 2023-12-16 17:02 | XRAY ---
Indication: Pain following fall. Comparison: None 3 view left hand demonstrates osteopenia. Minimal/mild degenerative changes all IP/MCP joints and 1st metacarpal multangular scaphoid articulation. No other bony, articular, or soft tissue abnormalities.
[2023-12-16 17:41] VITALS: BP 150/78; PULSE 72; RESP 16; O2SAT 94
== END 2023-12-16 17:45 | disposition home or self-care (01) ==
LOC: ED 16:33
DX: S60.222A Contusion of left hand, initial encounter (principal); S60.022A Contusion of left index finger without damage to nail, initial encounter; S60.032A Contusion of left middle finger without damage to nail, initial encounter; W10.8XXA Fall (on) (from) other stairs and steps, initial encounter; Y92.008 Other place in unspecified non-institutional (private) residence as the place of occurrence of the external cause; I11.0 Hypertensive heart disease with heart failure; I50.9 Heart failure, unspecified; E78.5 Hyperlipidemia, unspecified; E11.9 Type 2 diabetes mellitus without complications; Z79.4 Long term (current) use of insulin; Z79.85 Long-term (current) use of injectable non-insulin antidiabetic drugs; Z79.899 Other long term (current) drug therapy; Z72.0 Tobacco use
CPT/HCPCS: 73130; 99282

== ENCOUNTER 2024-02-05 22:46 | Emergency (ER) | payer MEDICARE ==
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
[2024-02-05] MEDS: HUMULIN R IV ONE (23:04)
[2024-02-05] MEDS: Sodium Chloride 0.9% 1000 ML 1,000 ML IV STA (23:04)
[2024-02-05 23:06] VITALS: TEMP 98.7
[2024-02-05 23:38] LABS: ALBUMIN 4.2 g/dL (3.5-5.0); ANION GAP 12.7 MEQ/L (5-15); BILIRUBIN,TOTAL 0.4 mg/dL (0.2-1.3); Calcium 9.7 mg/dL (8.4-10.2); Creatinine 1 1.11 mg/dL (0.52-1.04); EST GLOMERULAR FILTRATION RATE 54.5 ML/MIN; Potassium 4.1 mmol/L (3.5-5.1); Total Protein 7.5 g/dL (6.3-8.2)
[2024-02-06 00:04] VITALS: BP 152/98; PULSE 88; RESP 19; O2SAT 99
== END 2024-02-06 00:04 | disposition home or self-care (01) ==
LOC: ED 22:46
DX: E11.65 Type 2 diabetes mellitus with hyperglycemia (principal); Z96.41 Presence of insulin pump (external) (internal); Z79.4 Long term (current) use of insulin; Z79.899 Other long term (current) drug therapy; Z72.0 Tobacco use
CPT/HCPCS: 36000; 36415; 80053; 82947; 83735; 99283

== ENCOUNTER 2024-12-27 11:40 | Day surgery (SDC) | payer MEDICARE ==
[~2024-12-27 11:40] MED LIST: CEFAZOLIN SODIUM ONE
[2024-12-27 11:58] VITALS: RESP 18; O2SAT 96
[2024-12-27] MEDS ORDERED: Xylocaine 1% Vial 30 ML PF IJ ONE (12:32)
[2024-12-27] MEDS ORDERED: Marcaine Mpf 0.5% Vial 30 Ml ONE (12:32)
[2024-12-27 12:33] LABS: BASOPHIL % 0.5 % (0.1-1.2); Basophil (Absolute #) 0.05 x10^3/uL (0.01-0.08); Eosinophil (Absolute #) 0.18 x10^3/uL (0.04-0.36); Hematocrit 40.3 % (34.1-44.9); Hemoglobin 12.8 g/dL (11.2-15.7); IMMATURE GRAN # 0.04 x10^3u/L (0.001-0.031); IMMATURE GRAN % 0.4 % (0.001-0.429); Lymphocyte (Absolute #) 3.09 x10^3/uL (1.18-3.74); Mean Corpuscular Hemoglobin 27.9 pg (25.6-32.2); Mean Corpuscular Hgb Concent. 31.8 g/dL (32.2-35.5); Monocyte (Absolute #) 0.41 x10^3/uL (0.24-0.86); NUCLEATED RBC # 0.00 x10^3u/L (0.00-0.012); NUCLEATED RBC % 0.0 % (0.00-0.2); Platelet Count 215 x10^3/uL (182-369); Red Blood Count 4.59 x10^6/uL (3.93-5.22); White Blood Count 10.2 x10^3/uL (3.98-10.04)
[2024-12-27 12:49] LABS: Calcium 9.3 mg/dL (8.4-10.2); Carbon Dioxide 27.0 mmol/L (22-30); Creatinine 1 1.05 mg/dL (0.52-1.04); EST GLOMERULAR FILTRATION RATE 58.2 ML/MIN; Glucose 168.0 mg/dL (74-106); Potassium 4.3 mmol/L (3.5-5.1); SGOT/AST 29.0 U/L (14-36); SGPT/ALT 41.0 U/L (0-35); Total Protein 7.6 g/dL (6.3-8.2)
[2024-12-27] MEDS ORDERED: Versed 2 MG/2 ML Injection ONE (13:18)
[2024-12-27] MEDS ORDERED: propofoL IV ONE (13:18)
[2024-12-27] MEDS ORDERED: SUBLIMAZE 100 MCG/2 ML ONE (13:18)
[2024-12-27 13:56] VITALS: PULSE 71
[2024-12-27 14:12] VITALS: BP 118/72; TEMP 97
--- NOTE | 2024-12-28 09:20 | OP ---
SURGERY DATE/TIME: 12/27/2024 [id number] PREOPERATIVE DIAGNOSES: 1) Suspicious lesion left foot. 2) Pain left foot. 3) Chronic skin lesion left foot. POSTOPERATIVE DIAGNOSES: 1) Suspicious lesion left foot. 2) Pain left foot. 3) Chronic skin lesion left foot. PROCEDURE: Excision of suspicious lesion left foot. SURGEON: Beltran Villeda DPM SECURITY SYSTEM ADMINISTRATOR: None. FINDINGS: 1) Small, well-circumscribed, reddish, vascular lesion consistent with diaz hemangioma. 2) No surrounding infection or ulceration. DESCRIPTION OF PROCEDURE AND FINDINGS: After informed consent was obtained, the patient was placed in a comfortable supine position. The left lower extremity was prepped and draped in the typical sterile fashion and lowered onto the surgical field. Local anesthetic was infiltrated just proximal to the lesion. A fusiform elliptical incision was made encompassing the vascular lesion with a small margin of normal tissue. The lesion was excised in toto. Hemostasis was obtained utilizing light electrocautery. The wound was closed primarily with 3-0 nylon in a simple interrupted type fashion. Dressing consisting of Betadine, Adaptic, 4 x 4, Kerlix, ABD, and Bernabe was applied to the patient's left lower extremity. The patient was then reversed from anesthesia and returned to the postoperative anesthesia care unit with vital signs stable and vascular status intact. The patient handled the anesthesia as well as the procedure without significant complication. Postoperative orders as indicated in the patient's discharge chart.
== END 2024-12-27 14:15 | disposition home or self-care (01) ==
LOC: SDC 11:40
PROVIDERS: ATTEND Podiatrist Foot & Ankle Surgery
DX: D18.01 Hemangioma of skin and subcutaneous tissue (principal); L98.9 Disorder of the skin and subcutaneous tissue, unspecified; M79.672 Pain in left foot; I10 Essential (primary) hypertension; E11.9 Type 2 diabetes mellitus without complications